=== PATIENT | male | born 1950 | race Caucasian/White ===

== ENCOUNTER 2019-07-21 10:14 | Outpatient (CLI) | payer MEDICARE, BC, SELFPAY ==
--- NOTE | ~2019-07-21 | XR_ITS ---
XR abdomen/kub 1V 07/21/2019 10:36 Indication: Renal stones Procedure: KUB Comparison: Comparison to multiple prior studies sequentially, with oldest reviewed study dated 04/2015. Findings: There are multiple right renal stones. There are left renal stones as well. Bowel gas patte rn is nonobstructive. There are pelvic phleboliths. No suspected ureteral stone. No acute osseous abn ormality. Impression: 1: Bilateral nephrolithiasis. No definite urolithiasis. Reviewed, dictated and finalized at location A. Impression: 1: Bilateral nephrolithiasis. No definite urolithiasis.
== END 2019-07-21 10:15 | disposition home or self-care (01) ==
PROVIDERS: Visit Provider Urology
DX: N20.0 Calculus of kidney (principal)
CPT/HCPCS: 74018

== ENCOUNTER 2019-08-19 07:05 | Emergency (ER) | payer MEDICARE, BC, SELFPAY ==
--- NOTE | ~2019-08-19 | CT_ITS ---
EXAMINATION: CT abdomen pelvis wo con DATE: 08/19/2019 07:23 INDICATION: Nephrolithiasis. Right flank pain. Nausea and vomiting. TECHNIQUE: Computed tomography (CT) of the abdomen and pelvis was performed without intravenous contr ast. Automated exposure control and iterative reconstruction technique were employed. The dose-length product was 465.44 mGy-cm. COMPARISON: 02/27/2015 FINDINGS: Bladimir at the bilateral lung bases. Heart size is normal. Atherosclerotic coronary artery calcificati on. No pericardial or pleural effusion. Diffuse hepatic steatosis. Gallbladder, spleen, pancreas and bilateral adrenal glands are normal. Small duodenal diverticulum. Bilateral nephrolithiasis with 4 st ones the left kidney the largest measuring 3 mm and a single 2 mm stone in the right kidney. 3 cm exo phytic cyst at the lower pole of the right kidney. Mild right hydronephrosis with obstructing [address] one in the mid right ureter. The left ureter and decompressed bladder are unremarkable. There is norm al appendix. No bowel obstruction. No free intraperitoneal gas or fluid. No pathologically enlarged a bdominal or pelvic lymphadenopathy. Mild colonic diverticulosis with a sigmoid predominance. There i s no adjacent inflammatory change to suggest diverticulitis. Moderate lumbar spondylosis. Stable appe arance of chronic osteonecrosis/avascular necrosis at the right femoral head. IMPRESSION: 1. Bilateral nephrolithiasis with obstructing 3 mm stone in the mid right ureter resulting in mild ri ght hydroureteronephrosis. 2. Diffuse hepatic steatosis. 3. 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 Reviewed, dictated and finalized at location A. IMPRESSION: 1. Bilateral nephrolithiasis with obstructing 3 mm stone in the mid right urete r resulting in mild right hydroureteronephrosis. 2. Diffuse hepatic steatosis. 3. 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
[2019-08-19 07:10] VITALS: BP 148/81; PULSE 57; RESP 16; TEMP 36.4; O2SAT 98
--- NOTE | 2019-08-19 07:29 | ED.MALEGU ---
HPI - Male Genitourinary General Chief complaint: Urogenital-Male Stated complaint: kidney stone Time Seen by Provider: 08/19/19 07:12 History of Present Illness HPI Narrative: Patient is a 69-year-old male who presents the ER with right-sided flank pain. Sudden onset this morning. Associated with nausea and vomiting as well as diaphoresis. Pain radiates from the right back into the right mid abdomen. Patient has history of kidney stones and this feels similar. Follows with Dr. Gonzalez. No fevers or chills. Denies any urinary frequency/urgency/hematuria/dysuria. No alleviating factors. Related Data Home Medications Medication Instructions Recorded Confirmed allopurinol 100 08/19/19 atorvastatin 10 08/19/19 bisoprolol fumarate 5 mg 08/19/19 cephalexin 250 08/19/19 losartan 100 08/19/19 potassium citrate PO 08/19/19 Allergies Allergy/AdvReac Type Severity Reaction Status Date / Time No Known Allergies Allergy Verified 08/19/19 07:22 Review of Systems Review of Systems: All systems reviewed & are unremarkable except as noted in HPI and below Constitutional: Constitutional: Denies chills, Denies fever(s) and Denies weakness Comments: Sweats ENT: Denies nasal congestion and Denies sore throat Gastrointestinal: Gastrointestinal: Denies abdominal pain, Reports nausea and Reports vomiting Genitourinary: Genitourinary: Denies hematuria, Denies dysuria and Denies urinary frequency Comments: Flank pain PMFSH Past Medical History Medical History (Updated 08/19/19 @ 10:00 by Benjamin Worrell MD) Hypertension Kidney stones Surgical History Surgical History (Updated 08/19/19 @ 07:31 by Benjamin Worrell MD) H/O lithotripsy Social History Social History (Updated 08/19/19 @ 07:31 by Benjamin Worrell MD) Smoking status: Never smoker Gender identity (if verbalized by the patient): Female Exam Narrative: Exam Narrative: GENERAL: Well-appearing, well-nourished, and in no acute distress. HEAD: Normocephalic, atraumatic. CHEST: Clear to auscultation. No respiratory distress. HEART: Regular rate and rhythm. Normal peripheral pulses. ABDOMEN: Soft, nontender, nondistended, no CVA tenderness. EXTREMITIES: Normal range of motion. No edema. SKIN: Warm, dry, no rash. NEURO: Alert and oriented x3. PSYCH: Normal mood and affect. Course Course Emergency Course: Feels much better after IV pain meds as well as antiemetics. Discharge home supportive therapy. Vital Signs Vital signs: Vital Signs Temperature 97.5 F L 08/19/19 07:10 Pulse Rate 57 L 08/19/19 07:10 Respiratory Rate 16 08/19/19 07:10 Blood Pressure 148/81 H 08/19/19 07:10 Pulse Oximetry 98 08/19/19 07:10 Temperature 97.5 F L 08/19/19 07:10 Pulse Rate 57 L 08/19/19 07:10 Respiratory Rate 16 08/19/19 07:10 Blood Pressure 148/81 H 08/19/19 07:10 Pulse Oximetry 98 08/19/19 07:10 MDM - Male Genitourinary Lab Data Labs: Lab Results 08/19/19 Range/Units 08:49 Urine Color Yellow (Yellow) Urine Appearance Clear (Clear) Urine pH 5.0 (5.0-9.0) Ur Specific [place] 1.023 (1.001-1.035) Urine Protein Negative (Negative) mg/dL Urine Glucose (UA) Negative (Negative) mg/dL Urine Ketones Negative (Negative) mg/dL Ur Blood (Man) 3+ H (Negative) Urine Nitrate Negative (Negative) Urine Bilirubin Negative (Negative) Urine Urobilinogen Negative (<2.0) mg/dL Leukocyte Esterase Rfl Negative (Negative) TOR/UL Urine RBC >75 H (0-2) /hpf Urine WBC 0-3 /hpf Urine Mucus Rare /lpf Imaging Data Radiologist's impression: ITS Impressions Abdomen/Pelvis CT 08/19/19 07:35 IMPRESSION: 1. Bilateral nephrolithiasis with obstructing 3 mm stone in the mid right ureter resulting in mild right hydroureteronephrosis. 2. Diffuse hepatic steatosis. 3. 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 Discharge Plan Discharge Clinica
[2019-08-19] MEDS: SODIUM CHLORIDE 0.9% IV 1,000 ML 999 ML IV CONT (07:34)
[2019-08-19] MEDS: MORPHINE SULFATE 4 MG/ML INJ IV PUSH (07:35)
[2019-08-19] MEDS: ONDANSETRON INJ 4 MG/2 ML VIAL IV PUSH (07:35)
[2019-08-19] MEDS: KETOROLAC 30 MG/ML VIAL (*BKC) IV PUSH (08:38)
[2019-08-19 08:59] LABS: Add Urine Microscopic? YES; Appearance Urine Clear (Clear); Bilirubin Urine Negative (Negative); Blood Urine 3+ (Negative); Color Urine Yellow (Yellow); Glucose Urine UA Negative (Negative); Ketones Urine Negative (Negative); Leukocyte Esterase Ur Negative LEU/UL (Negative); Mucus Urine Rare /lpf; Nitrate Urine Negative (Negative); Protein Urine Negative (Negative); RBC Urine >75 /hpf (0-2); Specific Grav Ur 1.023 (1.001-1.035); Urobilinogen Urine Negative mg/dL (<2.0); WBC Urine 0-3 /hpf
[2019-08-19] MEDS: PROMETHAZINE HCL 25 MG/ML AMPUL 12.5 MG IV PUSH (08:59)
[2019-08-19 10:22] VITALS: BP 107/73; PULSE 85; RESP 15; O2SAT 100
== END 2019-08-19 10:24 | disposition home or self-care (01) ==
PROVIDERS: Emergency Provider Emergency Medicine
DX: N13.2 Hydronephrosis with renal and ureteral calculous obstruction (principal); I10 Essential (primary) hypertension; K76.0 Fatty (change of) liver, not elsewhere classified; M87.9 Osteonecrosis, unspecified
CPT/HCPCS: 74176; 81001; 96361; 96374; 96375; 99284; J1885; J2270; J2405; J2550; J7030

== ENCOUNTER 2020-04-07 16:52 | Emergency (ER) | payer MEDICARE, BC, SELFPAY ==
--- NOTE | ~2020-04-07 | XR_ITS ---
EXAMINATION: XR wrist RT min 3V DATE: 04/07/2020 17:18 INDICATION: Radial sided right wrist pain. TECHNIQUE: 4 views of right wrist were obtained. COMPARISON: None. FINDINGS: There is a nondisplaced sagittal fracture of distal radius involving the distal articular s urface. Ulnar styloid is intact. There is mild osteoarthritis of triscaphe joint and severe osteoarth ritis of first carpometacarpal joint. There is a loose body in first carpometacarpal joint. IMPRESSION: 1. Nondisplaced fracture of distal radius. 2. Polyarticular osteoarthritis. Reviewed, dictated and finalized at location A. [employer]
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
[2020-04-07 17:08] VITALS: BP 149/76; PULSE 59; RESP 16; TEMP 36.9; O2SAT 99
== END 2020-04-07 17:50 | disposition home or self-care (01) ==
PROVIDERS: Emergency Provider Nurse Practitioner; PCP Family Medicine
DX: S52.501A Unspecified fracture of the lower end of right radius, initial encounter for closed fracture (principal); V18.4XXA Pedal cycle driver injured in noncollision transport accident in traffic accident, initial encounter; I10 Essential (primary) hypertension; E78.00 Pure hypercholesterolemia, unspecified; M10.9 Gout, unspecified
CPT/HCPCS: 29125; 73110; 99214; A4565; G0463

== ENCOUNTER 2020-08-23 10:35 | Outpatient (CLI) | payer MEDICARE, BC, SELFPAY ==
--- NOTE | ~2020-08-23 | XR_ITS ---
EXAMINATION: XR abdomen/kub 1V EXAM DATE: 08/23/2020 10:52 INDICATION: Calculus of kidney . TECHNIQUE: Frontal projection of the upper abdomen, frontal projection lower abdomen/pelvis for inter pretation. Comparison is made to prior examination from 07/21/2019. FINDINGS: Approximately 3 mm right calyceal stone suspected. Several left calyceal stones suspected up to about 4 mm. These calcifications have been indicated. Nonobstructive bowel gas pattern. Asymme tric left-sided chronic sacroiliitis. Mild chronic right hip avascular necrosis. Mild lumbar levoscol iosis. IMPRESSION: Bilateral nephrolithiasis. Reviewed, dictated and finalized at location B. IMPRESSION: Bilateral nephrolithiasis.
== END 2020-08-23 10:36 | disposition home or self-care (01) ==
PROVIDERS: PCP Family Medicine; Visit Provider Urology
DX: N20.0 Calculus of kidney (principal)
CPT/HCPCS: 74018

== ENCOUNTER 2021-08-24 09:00 | Outpatient (CLI) | payer MEDICARE, BC, SELFPAY ==
--- NOTE | ~2021-08-24 | XR_ITS ---
EXAM: XR abdomen/kub 1V DATE: 08/24/2021 09:17 HISTORY: CALCULUS OF KIDNEY. FOLLOW UP . COMPARISON: 08/23/2020. FINDINGS: Clear lung bases. Normal bowel gas pattern. No organomegaly. 3 mm right midpole and multip le 2 to 4 mm left mid and lower pole calcifications. Left sacroiliitis. Degenerative changes in the l umbar spine. Right femoral head AVN. IMPRESSION: Stable nephrolithiasis. Reviewed, dictated and finalized at location K. IMPRESSION: Stable nephrolithiasis.
== END 2021-08-24 09:01 | disposition home or self-care (01) ==
PROVIDERS: PCP Family Medicine; Visit Provider Urology
DX: N20.0 Calculus of kidney (principal)
CPT/HCPCS: 74018

== ENCOUNTER 2021-10-23 10:19 | Emergency (ER) | payer MEDICARE, BC, SELFPAY ==
--- NOTE | ~2021-10-23 | XR_ITS ---
EXAMINATION: XR wrist LT min 3V DATE: 10/23/2021 10:50 INDICATION: Left wrist pain. Fall. TECHNIQUE: 4 views of left wrist were obtained. COMPARISON: None. FINDINGS: Bone alignment is normal. No fracture. There is severe osteoarthritis of first carpometacar pal joint. IMPRESSION: 1. Severe osteoarthritis of first carpometacarpal joint. Reviewed, dictated and finalized at location A.
[2021-10-23 10:32] VITALS: BP 136/59; PULSE 57; RESP 18; TEMP 36.6; O2SAT 97
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
== END 2021-10-23 11:24 | disposition home or self-care (01) ==
PROVIDERS: Emergency Provider Nurse Practitioner Adult Health; PCP Family Medicine
DX: S63.502A Unspecified sprain of left wrist, initial encounter (principal); S66.912A Strain of unspecified muscle, fascia and tendon at wrist and hand level, left hand, initial encounter; V18.4XXA Pedal cycle driver injured in noncollision transport accident in traffic accident, initial encounter; I10 Essential (primary) hypertension; E78.5 Hyperlipidemia, unspecified; M19.90 Unspecified osteoarthritis, unspecified site; E78.00 Pure hypercholesterolemia, unspecified
CPT/HCPCS: 73110; 99213; G0463

== ENCOUNTER 2022-07-08 18:00 | Emergency (ER) | payer MEDICARE, BC, SELFPAY ==
[2022-07-08 18:14] VITALS: BP 141/66; PULSE 58; RESP 16; TEMP 37.1; O2SAT 98
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
[2022-07-08] MEDS: TETANUS,DIPHTHERIA,AC PERTUSSIS ADULT (0.5 ML) BOOSTRIX IM (18:31)
== END 2022-07-08 18:55 | disposition home or self-care (01) ==
PROVIDERS: Emergency Provider Nurse Practitioner; PCP Hospitalist
DX: S61.411A Laceration without foreign body of right hand, initial encounter (principal); W25.XXXA Contact with sharp glass, initial encounter; M19.90 Unspecified osteoarthritis, unspecified site; E78.00 Pure hypercholesterolemia, unspecified; I10 Essential (primary) hypertension
CPT/HCPCS: 12001; 90471; 90715; 99212; G0463

== ENCOUNTER 2022-10-10 07:41 | Outpatient (CLI) | payer MEDICARE, BC, SELFPAY ==
--- NOTE | ~2022-10-10 | XR_ITS ---
Supine and upright views of the abdomen Clinical history: Renal stones COMPARISON: 08/24/2021 Findings: Bowel gas pattern is nonspecific. No evidence for obstruction or free air. Multiple small b ilateral renal stones are similar in distribution to prior exam, largest stone probably in the left k idney measuring approximately 4 mm. Osseous structures are intact. Impression: Small bilateral renal stones, as detailed above. Reviewed, dictated and finalized at location . Impression: Small bilateral renal stones, as detailed above.
== END 2022-10-10 07:42 | disposition home or self-care (01) ==
PROVIDERS: PCP Hospitalist; Visit Provider Urology
DX: N20.0 Calculus of kidney (principal)
CPT/HCPCS: 74018

== ENCOUNTER 2023-11-01 11:59 | Outpatient (CLI) | payer MEDICARE, BC, SELFPAY ==
--- NOTE | ~2023-11-01 | XR_ITS ---
XR abdomen/kub 1V DATE: 11/01/2023 12:15 INDICATION: Kidney calculus follow-up TECHNIQUE: 2 AP supine views COMPARISON: 10/10/2022 PA FINDINGS: No apparent change of bilateral renal calcified calculi including at least one on the right , at least 3 on the left. Noncontrast CT abdomen pelvis examination would be more sensitive and accur ate for detection of urinary tract calculi. The psoas shadows are intact. No visceromegaly is evident. No evidence of bowel obstruction. 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 Mild thoracic and lumbar spondylosis. IMPRESSION: Stable appearing bilateral nephrolithiasis since 10/10/2022 Reviewed, dictated and finalized at Location A. Reviewed, dictated and finalized at location A.
== END 2023-11-01 12:00 | disposition home or self-care (01) ==
PROVIDERS: PCP Hospitalist; Visit Provider Urology
DX: N20.0 Calculus of kidney (principal)
CPT/HCPCS: 74018

== ENCOUNTER 2023-11-05 05:48 | Observation (INO) | payer MEDICARE, BC, SELFPAY ==
[2023-11-05] VITALS (11 sets, daily range): BP systolic 102–164; BP diastolic 40–82; PULSE 52–93; RESP 10–19; TEMP 36.1–36.9; O2SAT 88–100; BMI 37.0
--- NOTE | ~2023-11-05 | XR_ITS ---
EXAMINATION: XR retrograde pyelo w/stent LT DATE: 11/05/2023 12:29 INDICATION: Left internal ureteral stent placement TECHNIQUE: Fluoroscopic images from a left internal ureteral stent placement are submitted for review . 56 seconds of fluoroscopy time. 17 fluoroscopic images FINDINGS: There is a left double-J internal ureteral stent projecting in expected position, with proximal [place] loop at the level of the renal pelvis and distal loop in the pelvis within the bladder lumen. IMPRESSION: 1. Left internal ureteral stent placement. Please refer to real-time procedural findings for detail s. Reviewed, dictated and finalized at location B. IMPRESSION: 1. Left internal ureteral stent placement. Please refer to real-time procedur al findings for details.
--- NOTE | ~2023-11-05 | CT_ITS ---
EXAMINATION: CT abdomen pelvis wo con DATE: 11/05/2023 06:45 INDICATION: Left flank pain TECHNIQUE: Computed tomography (CT) of the abdomen and pelvis was performed without intravenous contr ast. Automated exposure control and iterative reconstruction technique were employed. The dose-length product was 1334.93 mGy-cm. COMPARISON: 08/19/2019 FINDINGS: Mild bibasilar atelectasis. Heart size is normal. Atherosclerotic coronary artery calcific lesion. No pericardial or pleural effusion. Small calcified hepatic nodule consistent with old granulomatous di sease. Gallbladder, spleen, pancreas and bilateral adrenal glands are normal. Bilateral nephrolithias is with 4 mm nonobstructing stone at the lower pole of the right kidney and 5 stones measuring up to 5 mm in the calyces of the left kidney. There is also a 4 mm obstructing stone at the proximal left u reter with mild left hydronephrosis. Bladder is decompressed. Prostatomegaly measuring 4.8 x 4.5 cm. There is mild colonic diverticulosis with a sigmoid predominance. There is no adjacent inflammatory c hange to suggest diverticulitis. Small bowel and appendix are normal. No free intraperitoneal gas or fluid. No pathologically enlarged abdominal or pelvic lymphadenopathy. Moderate lumbar and lower thor acic spondylosis. There is osteophyte necrosis at the right femoral head. IMPRESSION: 1. Bilateral nephrolithiasis with obstructing 4 mm stone at the proximal left ureter with mild left h ydronephrosis. 2. Osteonecrosis of the right femoral head. Reviewed, dictated and finalized at location A. IMPRESSION: 1. Bilateral nephrolithiasis with obstructing 4 mm stone at the proximal left u reter with mild left hydronephrosis. 2. Osteonecrosis of the right femoral head.
--- NOTE | 2023-11-05 06:06 | ED.ABDPAIN ---
HPI - Abdominal Pain General Chief Complaint: Abdominal Pain Stated Complaint: left sided kidney stone Time Seen by Provider: 11/05/23 05:49 History of Present Illness HPI narrative: patient with history of kidney stones, presents here with sudden onset pain to left flank that feels like a kidney stone associated with nausea. Related Data Home Medications Medication Instructions Recorded Confirmed allopurinol 100 mg tablet 100 mg PO DAILY 04/07/20 07/08/22 (Zyloprim) amlodipine 5 mg tablet (Norvasc) 5 mg PO DAILY 04/07/20 07/08/22 bisoprolol fumarate 5 mg tablet 10 mg PO DAILY 04/07/20 07/08/22 losartan 100 mg tablet 150 mg PO DAILY 04/07/20 07/08/22 potassium citrate 10 mEq (1,080 10 meq PO BID 04/07/20 07/08/22 mg) tablet,extended release (Urocit-K 10) cholecalciferol (vitamin D3) 50 50 mcg PO DAILY 04/09/20 07/08/22 mcg (2,000 unit) capsule rosuvastatin 20 mg tablet 20 mg PO DAILY 07/08/22 07/08/22 Allergies Allergy/AdvReac Type Severity Reaction Status Date / Time No Known Allergies Allergy Verified 07/08/22 18:13 Review of Systems Review of Systems: All systems reviewed & are unremarkable except as noted in HPI and below PMFSH Past Medical History Medical History Arthritis Distal radial fracture High cholesterol History of adverse effect of anesthesia Hypertension Kidney stones Wears glasses Surgical History Surgical History H/O lithotripsy History of ear surgery approx. 1999 History of extraction of renal calculus History of repair of rotator cuff approx. [id number] History of tonsillectomy Family History Family History Other Arthritis Heart disease High cholesterol Hypertension Social History Social History Smoking status: Never smoker Alcohol intake: current Alcohol use details: 6 times per year Substance use: never Substance use type: does not use Gender identity (if verbalized by the patient): Male Exam Narrative: EXAMINATION OF ORGAN SYSTEMS/BODY AREAS: Constitutional: Vital signs per nursing GENERAL: Appears slightly uncomfortable HEAD: Normal with no signs of head trauma. EYES: EOMI, conjunctiva normal ENT: Hearing grossly intact LUNGS: Nonlabored breathing. HEART: [Regular rate and rhythm] ABD: [Soft], [nontender to palpation] EXT: Normal range of motion SKIN: [No rashes or lesions.] NEURO: [Alert and oriented x 3. No gross focal sensory or strength deficits.] PSYCH: Normal affect Course Vital Signs Vital signs: Vital Signs Temperature 98.4 F 11/05/23 05:59 Pulse Rate 78 11/05/23 05:59 Respiratory Rate 14 11/05/23 05:59 Blood Pressure 164/82 H 11/05/23 05:59 Pulse Oximetry 100 11/05/23 05:59 Oxygen Delivery Room Air 11/05/23 05:59 Temperature 98.4 F 11/05/23 05:59 Pulse Rate 78 11/05/23 05:59 Respiratory Rate 14 11/05/23 05:59 Blood Pressure 164/82 H 11/05/23 05:59 Pulse Oximetry 100 11/05/23 05:59 Oxygen Delivery Room Air 11/05/23 05:59 MDM - Abdominal Pain MDM Narrative Medical decision making narrative: ED COURSE AND MEDICAL DECISION MAKINM presenting to the emergency department for acute flank pain, symptoms are concerning for likely renal colic versus pyelonephritis. Urinalysis is ordered. [IV Morphine and Zofran] are ordered. CT scan of the abdomen/pelvis is ordered. CT scan of the abdomen/pelvis is reviewed/interpreted by myself shows L prox ureteral stone about 5.5 mm. D/w Dr Oliveira who will adm pt and possibly take to OR later today. Lab Data 11/05/23 06:12 11/05/23 06:12 Labs: Lab Results 11/05/23 Range/Units 06:12 WBC 8.7 (4.5-10.0) K/mm3 RBC 4.66 (4.6-6.20) M/mm3 Hgb 14.6 (14.0-
[2023-11-05] MEDS: ONDANSETRON INJ 4 MG/2 ML VIAL IV PUSH (06:14)
[2023-11-05] MEDS: MORPHINE SULFATE (*CRX) 4 MG/ML INJ 2 MG IV PUSH (06:14)
[2023-11-05 06:20] LABS: Basophils Percent Auto 0.3 % (0.2-1.2); Eosinophils Absolute Auto 0.1 K/mm3 (0-0.3); Hematocrit 44.4 % (42.0-52.0); Hemoglobin 14.6 g/dL (14.0-18.0); Immature Granulocyte Absolute 0.02 K/mm3 (0.00-0.031); Immature Granulocyte Percent A 0.2 % (0-0.5); Lymphocytes Absolute Auto 1.04 K/mm3 (0.9-3.2); Lymphocytes Percent Auto 11.9 % (18.3-44.2); Mean Corpuscular HGB Conc 32.9 g/dl (32-36); Mean Corpuscular Hemoglobin 31.3 pg (26-34); Mean Corpuscular Volume 95.3 fl (80-100); Mean Platelet Volume 11.3 fl (7.4-10.4); Monocytes Absolute Auto 0.7 K/mm3 (0.1-0.6); Monocytes Percent Auto 7.8 % (2.6-8.5); Neutrophils Absolute Auto 6.9 K/mm3 (1.3-6.7); Neutrophils Percent Auto 78.8 % (45.5-73.1); Platelet Count Result 246 k/mm3 (150-375); Red Blood Count 4.66 M/mm3 (4.6-6.20); White Blood Count 8.7 K/mm3 (4.5-10.0)
[2023-11-05 06:30] LABS: Add Urine Microscopic? YES; Appearance Urine Clear (Clear); Bacteria Urine None Seen /hpf; Bilirubin Urine Negative (Negative); Blood Urine 3+ (Negative); Color Urine Yellow (Yellow); Glucose Urine UA Negative (Negative); Ketones Urine Negative (Negative); Leukocyte Esterase Ur Negative LEU/UL (Negative); Nitrate Urine Negative (Negative); Non Pathogenic Casts 0-2; Protein Urine Negative (Negative); RBC Urine >100 /hpf (0-2); Specific Grav Ur 1.013 (1.001-1.035); Squamous Epithelial Cell Urine None Seen /hpf (Few); Urobilinogen Urine 0.2 mg/dL (<2.0); WBC Urine 0-5 /hpf (0-3)
[2023-11-05 06:33] LABS: Alanine Aminotransferase 29 U/L (6-50); Albumin Level 4.3 g/dL (3.5-5.1); Alkaline Phosphatase 61 U/L (38-126); Anion Gap 9 mmol/L (4-12); Aspartate Amino Transferase 38 U/L (17-59); Bilirubin,Total 0.9 mg/dL (0.2-1.3); Blood Urea Nitrogen 19 mg/dL (9-20); Calcium 8.8 mg/dL (8.4-10.2); Carbon Dioxide 27 mmol/L (22-30); Chloride 101 mmol/L (98-107); Estimated CRCL calculation 52 ml/min; Estimated Glomerular Filt Rate 59; Glucose 127 mg/dL (65-110); Lipase 89 U/L (23-300); Potassium 4.5 mmol/L (3.4-5.0); Sodium 137 mmol/L (137-145)
[2023-11-05] MEDS: HYDROmorphone HCL INJ (*CRX) 1 MG/ML SYR IV PUSH (07:13)
--- NOTE | 2023-11-05 07:37 | PM.IMHP ---
H&P: HPI History of Present Illness Date/Time: 11/05/23 07:37 Chief Complaint: left flank pain Narrative: 73-year-old male well known to our practice with a history of recurrent urolithiasis. He was just seen a couple days ago with [facility] imaging showing stable stones in his left kidney. He now presents to the ER with acute left renal colic and imaging showing an obstructing proximal ureteral stone. He denies fevers chills or gross hematuria Review of Systems Review of Systems: All systems reviewed & are unremarkable except as noted in HPI and below PMFSH Past Medical History Medical History Arthritis Distal radial fracture High cholesterol History of adverse effect of anesthesia Hypertension Kidney stones Wears glasses Surgical History Surgical History H/O lithotripsy History of ear surgery approx. 1999 History of extraction of renal calculus History of repair of rotator cuff approx. [id number] History of tonsillectomy Family History Family History Other Arthritis Heart disease High cholesterol Hypertension Social History Social History Smoking status: Never smoker Alcohol intake: current Alcohol use details: 6 times per year Substance use: never Substance use type: does not use Gender identity (if verbalized by the patient): Male Meds Home Medications and Allergies Home Medications Medication Instructions Recorded Confirmed Type allopurinol 100 mg tablet 100 mg PO DAILY 04/07/20 07/08/22 History (Zyloprim) amlodipine 5 mg tablet (Norvasc) 5 mg PO DAILY 04/07/20 07/08/22 History bisoprolol fumarate 5 mg tablet 10 mg PO DAILY 04/07/20 07/08/22 History losartan 100 mg tablet 150 mg PO DAILY 04/07/20 07/08/22 History potassium citrate 10 mEq (1,080 10 meq PO BID 04/07/20 07/08/22 History mg) tablet,extended release (Urocit-K 10) cholecalciferol (vitamin D3) 50 50 mcg PO DAILY 03/01/21 05/30/23 History mcg (2,000 unit) capsule rosuvastatin 20 mg tablet 20 mg PO DAILY 07/08/22 07/08/22 History Allergies Allergy/AdvReac Type Severity Reaction Status Date / Time No Known Allergies Allergy Verified 07/08/22 18:13 Vital Signs Vital Signs - 24 hr 11/05/23 05:59 Temperature 98.4 F Pulse Rate 78 Respiratory Rate 14 Blood Pressure 164/82 H Pulse Oximetry 100 Oxygen Delivery Room Air Exam Const: General: no acute distress Resp: Effort & Inspection: normal respiratory effort GI: Inspection: non-distended GI Palp: No abdominal tenderness and No Guarding due to palpation present (GI) Auscultation: normal bowel sounds H&P: Results Labs Labs: Short CBC 11/05/23 Range/Units 06:12 WBC 8.7 (4.5-10.0) K/mm3 Hgb 14.6 (14.0-18.0) g/dL Hct 44.4 (42.0-52.0) % Plt Count 246 (150-375) k/mm3 BMP 11/05/23 06:12 Sodium 137 Potassium 4.5 Chloride 101 Carbon Dioxide 27 BUN 19 Creatinine 1.20 Glucose 127 H Calcium 8.8 Liver Function 11/05/23 Range/Units 06:12 Total Bilirubin 0.9 (0.2-1.3) mg/dL AST 38 (17-59) U/L ALT 29 (6-50) U/L Alkaline Phosphatase 61 (38-126) U/L Albumin 4.3 (3.5-5.1) g/dL Urine 11/05/23 Range/Units 06:12 Urine Color Yellow (Yellow) Urine Appearance Clear (Clear) Urine pH 5.0 (5.0-9.0) Ur Specific [place] 1.013 (1.001-1.035) Urine Protein Negative (Negative) mg/dL Urine Glucose (UA) Negative (Negative) mg/dL Assessment and Plan Assessment and plan (1) Calculus of proximal left ureter: Code(s): N20.1 - Calculus of ureter Status: Acute (2) Left renal stone: Code(s): N20.0 - Calculus of kidney Status: Acute Assessment and Plan: Cystoscopy, left ureteroscopy with stone
--- NOTE | 2023-11-05 07:39 | WPDHPUPDATE1 ---
History and Physical Update Update Date/Time: 11/05/23 07:39 History and Physical has been reviewed, including an updated exam of the patient. There are NO changes in the patient's condition. Risks, benefits, and alternatives have been discussed and questions answered. Patient agrees to proceed with procedure.
--- NOTE | 2023-11-05 07:56 | ADMGEN ---
This patient, Ildefonso Archuleta, was admitted to Medical Room 344-01. Patient/family oriented to hospital policies and general routines including ID bracelet, bed and alarms, visiting hours, pain management, procedures, bathroom and other care routines, personal items, smoking policy, room service/diet, and visiting hours. Information on how to activate the Rapid Response Team has been discussed. Patient/Family are encouraged to report perceived risks to care and to ask questions if they do not understand what they are told or what they should do.
[2023-11-05] MEDS: FAMOTIDINE 20 MG/2 ML VIAL IV PUSH (09:42)
[2023-11-05] MEDS: diphenhydrAMINE HCl INJ 50 MG/ML VIAL 12.5 MG IV PUSH (09:42)
--- NOTE | 2023-11-05 10:51 | WPDANESEPPF ---
Anes - Initial Pre Proc Eval Procedure: Operation Date: 11/05/23 17:00 Proposed Procedures p Cystoscopy, Left Ureteroscopy, Possible Left Retrograde Pyelogram, Possible Left Stone Extraction, Possible Left Stent Placement, Possible Holmium Laser - Earnest Oliveira MD Date/Time: 11/05/23 10:51 Surgeon: Earnest Oliveira MD Pre Op Diagnosis: Left Kidney Stone Patient Data Age: 73 Gender: M Height: 1.65 m Weight: 101 kg Last Vital Signs Temp 97.4 F L 11/05/23 08:25 Pulse 53 L 11/05/23 08:25 Resp 18 11/05/23 08:25 BP 121/52 L 11/05/23 08:25 Pulse Ox 93 11/05/23 08:25 O2 Del Method Room Air 11/05/23 05:59 Allergies Allergy/AdvReac Type Severity Reaction Status Date / Time No Known Allergies Allergy Verified 11/05/23 10:23 Home Medications Medication Instructions Recorded Confirmed Type amlodipine 5 mg tablet (Norvasc) 5 mg PO DAILY 04/07/20 11/05/23 History bisoprolol fumarate 5 mg tablet 10 mg PO DAILY 04/07/20 11/05/23 History losartan 100 mg tablet 100 mg PO DAILY 04/07/20 11/05/23 History potassium citrate 10 mEq (1,080 20 meq PO BID 04/07/20 11/05/23 History mg) tablet,extended release (Urocit-K 10) cholecalciferol (vitamin D3) 50 50 mcg PO DAILY 04/09/20 11/05/23 History mcg (2,000 unit) capsule rosuvastatin 20 mg tablet 20 mg PO DAILY 07/08/22 11/05/23 History aspirin 81 mg tablet,delayed 81 mg PO DAILY 11/05/23 11/05/23 History release (Adult Low Dose Aspirin) losartan 100 mg tablet 50 mg PO HS 11/05/23 11/05/23 History Laboratory Tests 11/05/23 06:12 WBC 8.7 K/mm3 (4.5-10.0) RBC 4.66 M/mm3 (4.6-6.20) Hgb 14.6 g/dL (14.0-18.0) Hct 44.4 % (42.0-52.0) MCV 95.3 fl (80-100) MCH 31.3 pg (26-34) MCHC 32.9 g/dl (32-36) RDW 13.0 % (11.5-14.5) Plt Count 246 k/mm3 (150-375) MPV 11.3 H fl (7.4-10.4) Immature Gran % (Auto) 0.2 % (0-0.5) Neut % (Auto) 78.8 H % (45.5-73.1) Lymph % (Auto) 11.9 L % (18.3-44.2) [place] % (Auto) 7.8 % (2.6-8.5) Eos % (Auto) 1.0 % (0-4.4) Baso % (Auto) 0.3 % (0.2-1.2) Lymph # (Auto) 1.04 K/mm3 (0.9-3.2) [place] # (Auto) 0.7 H K/mm3 (0.1-0.6) Eos # (Auto) 0.1 K/mm3 (0-0.3) Baso # (Auto) 0.0 K/mm3 (0.0-0.1) Abs Immat Gran (auto) 0.02 K/mm3 (0.00-0.031) Absolute Neuts (auto) 6.9 H K/mm3 (1.3-6.7) Absolute Nucleated RBC 0.000 K/mm3 (0.0-0.012) Nucleated RBC % 0.0 % (0.0-0.2) Sodium 137 mmol/L (137-145) Potassium 4.5 mmol/L (3.4-5.0) Chloride 101 mmol/L (98-107) Carbon Dioxide 27 mmol/L (22-30) Anion Gap 9 mmol/L (4-12) BUN 19 mg/dL (9-20) Creatinine 1.20 mg/dL (0.7-1.3) Estim Creat Clear Calc 52 ml/min Estimated GFR 59 (59 - ) Glucose 127 H mg/dL (65-110) Calcium 8.8 mg/dL (8.4-10.2) Total Bilirubin 0.9 mg/dL (0.2-1.3) AST 38 U/L (17-59) ALT 29 U/L (6-50) Alkaline Phosphatase 61 U/L (38-126) Total Protein 7.0 g/dL (6.3-8.2) Albumin 4.3 g/dL (3.5-5.1) Lipase 89 U/L (23-300) Urine Color Yellow (Yellow) Urine Appearance Clear (Clear) Urine pH 5.0 (5.0-9.0) Ur Specific [place] 1.013 (1.001-1.035) Urine Protein Negative mg/dL (Negative) Urine Glucose (UA) Negative mg/dL (Negative) Urine Ketones Negative mg/dL (Negative) Ur Blood (Man) 3+ H (Negative) Urine Nitrate Negative (Negative) Urine Bilirubin Negative (Negative) Urine Urobilinogen 0.2 mg/dL (<2.0) Leukocyte Esterase Rfl Negative TOR/UL (Negative) Urine RBC >100 H /hpf (0-2) Urine WBC 0-5 /hpf (0-3) Ur Squamous Epith Cells None seen /hpf (Few) Urine Bacteria None seen /hpf Urine Casts 0-2 Patient hx anesthesia problems: none Family hx anesthesia problems: none Results Review: All pre-operative results and documents have been re
[2023-11-05] MEDS: LIDOCAINE HCL 2% GEL UROJET 10 ML PKG MUCOUS MEM (10:57)
[2023-11-05] MEDS: ceFAZolin SODIUM 1 GM VIAL 2 GM IV PUSH (11:11)
--- NOTE | 2023-11-05 11:48 | W.PM.PROC2 ---
Procedure Note - Detailed Date of Procedure 11/05/23 Pre-op Diagnosis Left Ureteral and Kidney Stones Post-op Diagnosis Same Procedure Performed Cystoscopy, left retrograde pyelography, left ureteroscopy with laser lithotripsy, stone extraction and stent placement Surgeon Earnest Oliveira MD Anesthesia General Description of Procedure patient is brought to the operative suite was prepped draped in routine sterile fashion while in dorsal lithotomy position after the uneventful induction of a general anesthetic. Cystoscopy was undertaken with a 19 F rigid cystoscope. His urethral stricture but significant prostatic hyperplasia including a moderate size median lobe. Bladder was trabeculated but without foreign body or neoplasm. A 0.035 in glidewire was advanced in the left renal pelvis. A safety wire was placed. The the distal ureter was dilated with an 8 F 10 F dilator into the 11 F/ 13 F ureteral access sheath was placed. Flexible ureteroscopy was undertaken. The mid ureteral stone is identified and fractured with a 200 micron [place] laser fiber. All fragments removed. I then did retrograde pyelogram and inspected calices. There were 3 additional stones found in his kidney which were also ablated. Larger pieces were removed. Scope was removed and a 4.8 F variable length stent was appropriately position. Patient tolerated the procedure well was taken recovery room good condition. Estimated Blood Loss 0
[2023-11-05] MEDS: LACTATED RINGERS 1,000 ML 30 ML IV CONT (12:04)
--- NOTE | 2023-11-06 12:11 | PM.DS ---
DS: Admitting Diagnosis Discharge Date 11/05/23 Admitting Diagnosis Left ureteral stone DS: Discharge Diagnosis Discharge Diagnosis (1) Calculus of proximal left ureter: Code(s): N20.1 - Calculus of ureter Status: Acute DS: Summary Hospital Course Hospital Course: patient is a known recurrent stone former who presented to the ED with a painful obstructing 5 mm left proximal ureteral stone. Later that day underwent ureteroscopy with laser lithotripsy and extraction of both ureteral and renal calculi. A stent was placed. That evening he was comfortable prompting our decision for discharge. Time Spent with Patient Time attestation: Total time spent providing and/or coordinating discharge services: DS: Data Data Completed and Pending Pending studies at discharge: Pending at discharge 11/05/23 11:32 Surgical [PTH] Routine Discharge Plan Discharge Attending physician on discharge: Earnest Oliveira Consulting providers: Eder Menjivar; Garcia Finley; Ildefonso Churchill Discharging Clinician: Earnest Oliveira Patient Disposition: Home, Self-Care Activity: other - see discharge instructions Diet: other - see discharge instructions Wound Care Instructions: follow printed instructions Discharge Instructions: 1) Activity: no driving or important decisions x24 hours. 2) Diet: resume your normal, pre-admission diet. 3) Follow-up: 7-[address] Gonzalez for stent removal / call for appointment ([phone]). Patient Instructions: Antibiotic Form Stand Alone Forms: General Discharge Information Follow-up/Referrals: Timmy Gonzalez MD [Physician] - Discharge Medications: New hydrocodone-acetaminophen 5-325 mg tablet 1 - 2 tablet PO Q6H PRN (Reason: pain) Qty: 20 0RF cephalexin 500 mg capsule 500 mg PO Q8H Qty: 15 0RF Continued rosuvastatin 20 mg tablet 20 mg PO DAILY amlodipine [Norvasc] 5 mg Tablet 5 mg PO DAILY bisoprolol fumarate 5 mg Tablet 10 mg PO DAILY potassium citrate [Urocit-K 10] 10 mEq (1,080 mg) Tablet Extended Release 20 meq PO BID losartan 100 mg Tablet 100 mg PO DAILY cholecalciferol (vitamin D3) 50 mcg (2,000 unit) capsule 50 mcg PO DAILY aspirin [Adult Low Dose Aspirin] 81 mg Tablet,Delayed Release (Dr/Ec) 81 mg PO DAILY losartan 100 mg tablet 50 mg PO HS Date of admission: 11/05/23 06:53 Primary Care Provider: Silvino,Rm Michelle Jr. Admitting Provider: Earnest Oliveira Attending physician on admission: Earnest Oliveira Condition: Stable
== END 2023-11-05 16:50 | disposition home or self-care (01) ==
LOC: ANHED 07:08 → ANH3MED 07:26
PROVIDERS: Admitting Provider Urology; Emergency Provider Emergency Medicine; PCP Hospitalist; Visit Provider Urology
PROC: (CPT 52352; principal; 2023-11-05 17:00)
DX: N20.2 Calculus of kidney with calculus of ureter (principal); Z87.442 Personal history of urinary calculi; N40.0 Benign prostatic hyperplasia without lower urinary tract symptoms; E78.00 Pure hypercholesterolemia, unspecified; I10 Essential (primary) hypertension; E66.9 Obesity, unspecified; Z68.37 Body mass index [BMI] 37.0-37.9, adult; Z79.899 Other long term (current) drug therapy
CPT/HCPCS: 52356; 36415; 74176; 74420; 80053; 81001; 82365; 83690; 85025; 88300; 96374; 96375; 99285; C1769; C1894; C2617; G0378; J0330; J0690; J1100; J1170; J1200; J2270; J2405; J2704; J3010; J7120; Q9966

== ENCOUNTER 2023-12-07 08:38 | Inpatient (IN) | payer MEDICARE, BC, SELFPAY ==
[2023-12-07] VITALS (8 sets, daily range): BP systolic 85–142; BP diastolic 60–86; PULSE 70–85; RESP 14–30; TEMP 36.9–37.1; O2SAT 96–99; BMI 34.7
--- NOTE | ~2023-12-07 | CT_ITS ---
EXAMINATION: CT abdomen pelvis wo con DATE: 12/07/2023 10:34 INDICATION: Diarrhea. TECHNIQUE: Computed tomography (CT) of the abdomen and pelvis was performed without intravenous contr ast. Automated exposure control and iterative reconstruction technique were employed. The dose-length product was 1007.45 mGy-cm. COMPARISON: CT abdomen and pelvis 11/05/2023 FINDINGS: The visualized portions of the lung bases demonstrate mild atelectasis. No pleural effusion . The heart size is normal. There are coronary artery calcifications. No pericardial effusion. The li boone, gallbladder, spleen, pancreas, and adrenal glands are normal. There is cortical thinning of the kidneys. There is a 5.0 cm cyst in right kidney. There is a 5 mm stone in right kidney. There are william roximately 3 stones in left kidney measuring up to 4 mm. There is urothelial thickening in left renal pelvis. There is asymmetric edema around left kidney. The prostate is moderately enlarged. There is diverticulosis of the colon without evidence of diverticulitis. There are no dilated loops of bowel. The appendix is not visualized. There are no pathologically enlarged lymph nodes. There is no free in traperitoneal fluid. There is moderate thoracic and lumbar spondylosis. There is mild chronic anterio r wedging of L1 vertebral body. There is a compression fracture of L2 with 1/5 loss of height. 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 IMPRESSION: 1. Inflammation of left ureter status post recent left ureteral stone extraction. 2. Bilateral nonobstructing kidney stones. 3. Acute versus subacute L2 compression fracture, new from 11/05/2023. Reviewed, dictated and finalized at location B. IMPRESSION: 1. Inflammation of left ureter status post recent left ureteral stone extractio n. 2. Bilateral nonobstructing kidney stones. 3. Acute versus subacute L2 compression fracture, new from 11/05/2023.
--- NOTE | ~2023-12-07 | XR_ITS ---
EXAMINATION: XR chest 2V DATE: 12/07/2023 09:24 INDICATION: Cough. TECHNIQUE: Frontal and lateral views of the chest were obtained. COMPARISON: Chest 2 views 03/18/14 FINDINGS: There is mild atelectasis at the lung bases. No pleural effusion or pneumothorax. The heart size is normal. IMPRESSION: 1. Mild atelectasis at the lung bases. Reviewed, dictated and finalized at location B.
--- NOTE | 2023-12-07 09:01 | ED_ITS ---
HPI - Nausea/Vomiting/Diarrhea General Chief complaint: Nausea/Vomiting/Diarrhea Stated complaint: fever, diarrhea Time Seen by Provider: 12/07/23 08:44 Source: patient, RN notes reviewed and old records reviewed Mode of arrival: ambulatory Limitations: no limitations History of Present Illness HPI Narrative: This is a 73 year old male who presents for evaluation of intermittent fever. Patient states that since last thursday he has been having intermittent fever. T max 103. Last nigh he reports having 102 F so he took tylenol. He has not taken tylenol this morning. He reports worsening congestion, cough with phlegm and intermittent diarrhea. He denies abdominal pain or chest pain. Denies sick contacts. He had lithotripsy 1 month ago MD elicited complaint: diarrhea Related Data Home Medications Medication Instructions Recorded Confirmed amlodipine 5 mg tablet (Norvasc) 5 mg PO DAILY 04/07/20 12/07/23 bisoprolol fumarate 5 mg tablet 10 mg PO DAILY 04/07/20 12/07/23 losartan 100 mg tablet 100 mg PO DAILY 04/07/20 12/07/23 potassium citrate 10 mEq (1,080 20 meq PO BID 04/07/20 12/07/23 mg) tablet,extended release (Urocit-K 10) cholecalciferol (vitamin D3) 50 50 mcg PO DAILY 04/09/20 12/07/23 mcg (2,000 unit) capsule rosuvastatin 20 mg tablet 20 mg PO DAILY 07/08/22 12/07/23 aspirin 81 mg tablet,delayed 81 mg PO DAILY 11/05/23 12/07/23 release (Adult Low Dose Aspirin) losartan 100 mg tablet 50 mg PO HS 11/05/23 12/07/23 [id number]-10 1 tablet PO DAILY 12/07/23 12/07/23 Allergies Allergy/AdvReac Type Severity Reaction Status Date / Time No Known Allergies Allergy Verified 12/07/23 08:40 Review of Systems Constitutional: Constitutional: Reports chills, Reports fatigue and Reports fever(s) ENT: Reports nasal congestion and Denies sore throat Cardiovascular: Cardiovascular: Denies chest pain Gastrointestinal: Gastrointestinal: Denies abdominal pain, Denies bloating and Reports diarrhea Genitourinary: Genitourinary: Reports oliguria and Denies urinary frequency Musculoskeletal: Musculoskeletal: Reports back pain (chronic) [facility] Past Medical History Medical History (Updated 12/07/23 @ 18:17 by Caroline Watson MD) Arthritis Distal radial fracture High cholesterol History of adverse effect of anesthesia Hypertension Kidney stones Wears glasses Surgical History Surgical History H/O lithotripsy History of ear surgery approx. 1999 History of extraction of renal calculus History of repair of rotator cuff approx. [id number] History of tonsillectomy Family History Family History Other Arthritis Heart disease High cholesterol Hypertension Social History Social History Smoking status: Never smoker Alcohol intake: current Drinks per week: 1 Alcohol use details: 6 times per year Substance use: never Substance use type: does not use Do You Feel Safe in your Home?: Yes Lack of Transportation: No Lack of Food: Never True Current Housing: I Have Housing Concerned About Future Housing: No Difficulty Paying Gas/Electric Bills: No Difficulty Paying for Meds: No Currently Unemployed: No Education: Don't Know Difficulty w/ Childcare or Family Care: No Gender identity (if verbalized by the patient): Male Spiritual care concerns: No Exam Const: General: no acute distress and alert Nutritional Appearance: well nourished Orientation/consciousness: patient oriented x3 HENMT: Head: normal to inspection Eyes: EOM: EOMs intact bilaterally Resp: Effort & Inspection: normal respiratory effort Auscultation: clear to auscultation bilaterally Cardio: Rate: regular rate Rhythm: regular rhythm Heart sounds: no murmurs GI: GI Palp: Yes Soft to palpation, No Tenderness to palpation present (GI), No Guarding due to palpation present (GI) and No Rigid due to palpation Auscultation: normal bowel sounds : General: Yes no CVA tenderness Back/Spine/Pelvis: Back: no CVA tenderness Skin: General skin exam: normal color Rashes: no rashes Neuro: General: patient oriented x3, moves all extremities and CN's II-XI intact bilaterally Psych: Mental Status: mental status grossly normal Affect: normal affect Course Consultations Consultation #1: I spoke with Dr. Blood with urology . He states no intervention needed. PAtient will be admitted to hospitalist Date: 12/07/23 Time: 12:16 Consultation #2: I spoke with Dr. Kaiser. She accepts patient to hospitalist service for IV antibiotics to treat for pyelonephritis Date: 12/07/23 Time: 12:46 Vital Signs Vital signs: Vital Signs Temperature 98.8 F 12/07/23 08:45 Pulse Rate 74 12/07/23 08:45 Respiratory Rate 30 H 12/07/23 08:45 Blood Pressure 123/86 12/07/23 08:45 Pulse Oximetry 98 12/07/23 08:45 Oxygen Delivery Room Air 12/07/23 08:45 Temperature 98.8 F 12/07/23 08:45 Pulse Rate 71 12/07/23 11:39 Respiratory Rate 21 H 12/07/23 11:39 Blood Pressure 112/60 12/07/23 11:39 Pulse Oximetry 99 12/07/23 11:39 Oxygen Delivery Room Air 12/07/23 08:45 MDM - Nausea/Vomiting/Diarrhea MDM Narrative Medical decision making narrative: Patient presents with intermittent fever for 8 days. labs, chest ray and CT abdomen and pelvis ordered. labs shows leukocytosis of 25 K. elevated creatinine from baseline. Cr. 1.7 today which is increased from 1.2. UA is positive. CT shows inflammation to left ureter but no obstructing stone. I call urology since patient has receive lithotripsy . PAtient to be admitted for IV antibiotics. Rocephin started. PAtient also given zofrn 4 mg IV and 1 liter NS bolus. Patient denies worsening back pain from his norm. no neurologic deficits. Differential Diagnosis Differential diagnosis: Likely food poisoning, gastroenteritis, dehydration and other (sepsis, bacteremia, UTI, pneumonia, endocarditis, viral syndrome) Medical Records Attestation: I reviewed the patient's medical records. Lab Data Attestation: I reviewed the patient's lab results. 12/07/23 09:16 12/07/23 09:16 Labs: Lab Results 12/07/23 12/07/23 Range/Units 09:16 09:40 WBC 25.7 H (4.5-10.0) K/mm3 RBC 4.51 L (4.6-6.20) M/mm3 Hgb 14.2 (14.0-18.0) g/dL Hct 42.0 (42.0-52.0) % MCV 93.1 (80-100) fl MCH 31.5 (26-34) pg MCHC 33.8 (32-36) g/dl RDW 13.2 (11.5-14.5) % Plt Count 304 (150-375) k/mm3 MPV 10.2 (7.4-10.4) fl Immature Gran % (Auto) Not Reportable Neut % (Auto) Not Reportable Lymph % (Auto) Not Reportable [place] % (Auto) Not Reportable Eos % (Auto) Not Reportable Baso % (Auto) Not Reportable Lymph # (Auto) Not Reportable [place] # (Auto) Not Reportable Eos # (Auto) Not Reportable Baso # (Auto) Not Reportable Abs Immat Gran (auto) Not Reportable Absolute Neuts (auto) Not Reportable Absolute Nucleated RBC Not Reportable Total Counted 100 Neutrophils % (Manual) 86 H (46-73) % Lymphocytes % (Manual) 7 L (18-44) % Monocytes % (Manual) 6 (3-9) % Promyelocytes % (Man) 1 % Nucleated RBC % Not Reportable Abs Lymphs (Manual) 1.79 (1.1-4.5) K/mm3 Abs Monocytes (Manual) 1.54 H (0.1-0.90) K/mm3 Platelet Estimate Adequate (Adequate) Large Platelets Present Giant Platelets Present Anisocytosis 1+ Schistocytes None seen Sodium 137 (137-145) mmol/L Potassium 3.7 (3.4-5.0) mmol/L Chloride 101 (98-107) mmol/L Carbon Dioxide 25 (22-30) mmol/L Anion Gap 11 (4-12) mmol/L BUN 28 H (9-20) mg/dL Creatinine 1.70 H (0.7-1.3) mg/dL Estim Creat Clear Calc 36 ml/min Estimated GFR 39 L (59 - ) Glucose 178 H (65-110) mg/dL Lactic Acid 2.0 (0.7-2.0) mmol/L Calcium 8.6 (8.4-10.2) mg/dL Total Bilirubin 1.1 (0.2-1.3) mg/dL AST 45 (17-59) U/L ALT 100 H (6-50) U/L Alkaline Phosphatase 103 (38-126) U/L Total Protein 7.0 (6.3-8.2) g/dL Albumin 3.6 (3.5-5.1) g/dL Urine Color Dark yellow (Yellow) Urine Appearance Turbid H (Clear) Urine pH 5.0 (5.0-9.0) Ur Specific [place] 1.022 (1.001-1.035) Urine Protein 2+ H (Negative) mg/dL Urine Glucose (UA) Negative (Negative) mg/dL Urine Ketones Trace H (Negative) mg/dL Ur Blood (Man) 2+ H (Negative) Urine Nitrate Positive H (Negative) Urine Bilirubin 1+ H (Negative) Urine Urobilinogen 1.0 (<2.0) mg/dL Add Ur Microanalysis Reviewed Leukocyte Esterase Rfl 2+ H (Negative) TOR/UL Urine RBC 21-50 H (0-2) /hpf Urine WBC >100 H (0-3) /hpf Ur Squamous Epith Cells Occasional (Few) /hpf Urine Bacteria None seen /hpf Urine Casts >20 Hyaline Casts Present (None) /lpf Influenza A (RT-PCR) Negative (Negative) Influenza B (RT-PCR) Negative (Negative) RSV (RT-PCR) Negative (Negative) SARS-CoV-2 RNA (RT-PCR) Negative (Negative) Imaging Data Radiologist's impression: ITS Impressions Chest X-Ray 12/07/23 09:49 IMPRESSION: 1. Mild atelectasis at the lung bases. Abdomen/Pelvis CT 12/07/23 10:44 IMPRESSION: 1. Inflammation of left ureter status post recent left ureteral stone extraction. 2. Bilateral nonobstructing kidney stones. 3. Acute versus subacute L2 compression fracture, new from 11/05/2023. Critical Care Time Critical Care Time Critical Care Time: Yes Total Critical Care Time: 35 Discharge Plan Discharge Clinical Impression: Pyelonephritis, Sepsis Patient Disposition: Still a Patient Condition: Stable
[2023-12-07 09:28] LABS: Hemoglobin 14.2 g/dL (14.0-18.0); Mean Corpuscular HGB Conc 33.8 g/dl (32-36); Mean Corpuscular Hemoglobin 31.5 pg (26-34); Mean Corpuscular Volume 93.1 fl (80-100); Mean Platelet Volume 10.2 fl (7.4-10.4); Platelet Count Result 304 k/mm3 (150-375); Red Blood Count 4.51 M/mm3 (4.6-6.20); Red Cell Distribution Width 13.2 % (11.5-14.5); White Blood Count 25.7 K/mm3 (4.5-10.0)
[2023-12-07 09:38] LABS: Alanine Aminotransferase 100 U/L (6-50); Albumin Level 3.6 g/dL (3.5-5.1); Alkaline Phosphatase 103 U/L (38-126); Anion Gap 11 mmol/L (4-12); Aspartate Amino Transferase 45 U/L (17-59); Bilirubin,Total 1.1 mg/dL (0.2-1.3); Blood Urea Nitrogen 28 mg/dL (9-20); Calcium 8.6 mg/dL (8.4-10.2); Carbon Dioxide 25 mmol/L (22-30); Chloride 101 mmol/L (98-107); Estimated CRCL calculation 36 ml/min; Estimated Glomerular Filt Rate 39; Glucose 178 mg/dL (65-110); Potassium 3.7 mmol/L (3.4-5.0); Sodium 137 mmol/L (137-145)
[2023-12-07] MEDS: SODIUM CHLORIDE 0.9% IV 1,000 ML 999 ML IV CONT (09:51)
[2023-12-07 10:00] LABS: Add Urine Microscopic? YES; Appearance Urine Turbid (Clear); Bacteria Urine None Seen /hpf; Bilirubin Urine 1+ (Negative); Blood Urine 2+ (Negative); Color Urine Dark Yellow (Yellow); Glucose Urine UA Negative (Negative); Hyaline Casts Urine Present /lpf; Ketones Urine Trace mg/dL (Negative); Leukocyte Esterase Ur 2+ LEU/UL (Negative); Need Manual Microscopic Reviewed; Nitrate Urine Positive (Negative); Non Pathogenic Casts >20; Protein Urine 2+ mg/dL (Negative); RBC Urine 21-50 /hpf (0-2); Specific Grav Ur 1.022 (1.001-1.035); Squamous Epithelial Cell Urine Occasional /hpf (Few); WBC Urine >100 /hpf (0-3)
[2023-12-07 10:10] LABS: Lymphocytes Absolute Manual 1.79 K/mm3 (1.1-4.5); Lymphocytes Percent Manual 7 % (18-44); Monocytes Absolute Manual 1.54 K/mm3 (0.1-0.90); Monocytes Percent Manual 6 % (3-9); Neutrophils Percent Manual 86 % (46-73); Promyelocytes Percent 1 %
[2023-12-07 10:11] LABS: Total Cells Counted 100
[2023-12-07 10:12] LABS: Anisocytosis 1+; Large Platelets Present; Schistocytes None Seen
[2023-12-07 10:13] LABS: Giant Platelets Present; Platelet Estimate Adequate (Adequate)
[2023-12-07 10:17] LABS: Influenza A QL RT-PCR Negative (Negative); Influenza B QL RT-PCR Negative (Negative); RSV RNA, RT-PCR Negative (Negative); SARS-CoV-2 RNA PCR Negative (Negative)
--- NOTE | 2023-12-07 10:31 | PC.NURSE ---
Pt in CT at this time
--- NOTE | 2023-12-07 12:47 | WPDURCON ---
Assessment and Plan Assessment and plan (1) Pyelonephritis: Code(s): N12 - Tubulo-interstitial nephritis, not specified as acute or chronic Status: Acute Assessment and Plan: being admitted to Medicine for IV antibiotics. Urine and blood cultures pending. Change to p.o. antibiotics for 14 days based on sensitivities. No acute intervention from a urologic standpoint needed at this time (2) Bilateral kidney stones: Code(s): N20.0 - Calculus of kidney Status: Acute Assessment and Plan: bilateral nonobstructing stones ranged in size from 3-5 mm. no obstructing nephrolithiasis Urology Consult Note HPI Date Seen: 12/07/23 Requesting Physician: Emergency Room [facility] Primary Care Provider: Rm DuboisJr. MD Consult Narrative Narrative: Ildefonso Archuleta is a 73 year old male with a long history of nephrolithiasis. He has had several stone procedures in the past. He has had lithotripsy as well as ureteroscopy. In late October he underwent left ureteroscopy and stone extraction. Stent removed 1 week later. He states that for the last week he has had intermittent fevers. As high as 103. he states he passed a small kidney stone on Thursday but was unable collected. His fevers have been intermittent and continued. This prompted a visit to the emergency room. He has had some urgency and frequency without selma dysuria. he voids with a good stream and has no prominent BPH symptoms. Mild left flank discomfort. CT scan performed shows findings consistent with left pyelonephritis. There is no significant hydronephrosis. He has bilaterally nonobstructing small kidney stones. His white count is elevated. He will be admitted to the hospitalist for IV antibiotics. No acute intervention is needed from a urologic standpoint at this Review of Systems Review of Systems: All systems reviewed & are unremarkable except as noted in HPI and below PMFSH Past Medical History Medical History Arthritis Distal radial fracture High cholesterol History of adverse effect of anesthesia Hypertension Kidney stones Wears glasses Surgical History Surgical History H/O lithotripsy History of ear surgery approx. 1999 History of extraction of renal calculus History of repair of rotator cuff approx. [id number] History of tonsillectomy Family History Family History Other Arthritis Heart disease High cholesterol Hypertension Social History Social History Smoking status: Never smoker Alcohol intake: current Drinks per week: 1 Alcohol use details: 6 times per year Substance use: never Substance use type: does not use Do You Feel Safe in your Home?: Yes Lack of Transportation: No Lack of Food: Never True Current Housing: I Have Housing Concerned About Future Housing: No Difficulty Paying Gas/Electric Bills: No Difficulty Paying for Meds: No Currently Unemployed: No Education: Don't Know Difficulty w/ Childcare or Family Care: No Gender identity (if verbalized by the patient): Male Spiritual care concerns: No Meds Home Medications and Allergies Home Medications Medication Instructions Recorded Confirmed Type amlodipine 5 mg tablet (Norvasc) 5 mg PO DAILY 04/07/20 12/07/23 History bisoprolol fumarate 5 mg tablet 10 mg PO DAILY 04/07/20 12/07/23 History losartan 100 mg tablet 100 mg PO DAILY 04/07/20 12/07/23 History potassium citrate 10 mEq (1,080 20 meq PO BID 04/07/20 12/07/23 History mg) tablet,extended release (Urocit-K 10) cholecalciferol (vitamin D3) 50 50 mcg PO DAILY 04/09/20 12/07/23 History mcg (2,000 unit) capsule rosuvastatin 20 mg tablet 20 mg PO DAILY 07/08/22 12/07/23 History aspirin 81 mg tablet,delayed 81 mg PO DAILY 11/05/23 12/07/23 History release (Adult Low Dose Aspirin) losartan 100 mg tablet 50 mg PO HS 11/05/23 12/07/23 History Allergies Allergy/AdvReac Type Severity Reaction Status Date / Time No Known Allergies Allergy Verified 12/07/23 08:40 Vital Signs Vital Signs - 24 hr 12/07/23 08:45 12/07/23 09:46 12/07/23 09:48 Temperature 98.8 F Pulse Rate 74 70 85 Respiratory Rate 30 H Blood Pressure 123/86 105/67 85/68 L Pulse Oximetry 98 Oxygen Delivery Room Air 12/07/23 09:49 12/07/23 10:56 12/07/23 11:39 Temperature Pulse Rate 80 82 71 Respiratory Rate 18 21 H Blood Pressure 93/63 L 128/85 112/60 Pulse Oximetry 99 99 Oxygen Delivery Exam Const: General: cooperative, healthy appearing, alert, awake and Physically active; No acute distress Nutritional Appearance: average body habitus and well nourished Orientation/consciousness: patient oriented x3 Limitations: no limitations HENMT: Head: normal to inspection Eyes: General: appearance normal, both eyes and all related structures Neck: Neck: normal visual inspection and full ROM Resp: Effort & Inspection: normal respiratory effort, able to speak in complete sentences and no cough GI: Inspection: normal to inspection and non-distended Back/Spine/Pelvis: Back: CVA tenderness ( Mild left) Skin: General skin exam: normal color and no rashes or lesions noted Lesions: no lesions Neuro: General: patient oriented x3 and moves all extremities Extrem: General: normal to inspection and full ROM Psych: Appearance: grossly normal and well kempt Results Labs 12/07/23 09:16 12/07/23 09:16 Labs: Short CBC 12/07/23 Range/Units 09:16 WBC 25.7 H (4.5-10.0) K/mm3 Hgb 14.2 (14.0-18.0) g/dL Hct 42.0 (42.0-52.0) % Plt Count 304 (150-375) k/mm3 [facility] 12/07/23 09:16 Sodium 137 Potassium 3.7 Chloride 101 Carbon Dioxide 25 BUN 28 H Creatinine 1.70 H Glucose 178 H Calcium 8.6 Liver Function 12/07/23 Range/Units 09:16 Total Bilirubin 1.1 (0.2-1.3) mg/dL AST 45 (17-59) U/L ALT 100 H (6-50) U/L Alkaline Phosphatase 103 (38-126) U/L Albumin 3.6 (3.5-5.1) g/dL Urine 12/07/23 Range/Units 09:40 Urine Color Dark yellow (Yellow) Urine Appearance Turbid H (Clear) Urine pH 5.0 (5.0-9.0) Ur Specific [place] 1.022 (1.001-1.035) Urine Protein 2+ H (Negative) mg/dL Urine Glucose (UA) Negative (Negative) mg/dL Imaging My impression: I have viewed his CT scan. There is significant no hydronephrosis. no stones in the ureter. There is bilateral nonobstructing renal stones. There was inflammation around the kidney and ureter consistent with pyelonephritis
[2023-12-07] MEDS: SODIUM CHLORIDE 0.9% IV 1,000 ML 125 ML IV CONT ×2 (13:02→20:29)
--- NOTE | 2023-12-07 15:39 | P.HP_ITS ---
H&P: HPI History of Present Illness Date/Time: 12/07/23 15:39 Chief Complaint: Fever Narrative: Pt admitted for high fevers of 103F on/ off for 8 days. Pt had recent Cystoscopy, left retrograde pyelography, left ureteroscopy with laser lithotripsy, stone extraction and stent placement in oct 2023 under urology pt was DC home after procedure. Pt states he did pass the stone on Thursday and then started getting fevers at home. Here pt has WCC 20,000, creat is 1.7. UA is positive CT scan shows Inflammation of left ureter status post recent left ureteral stone extraction. 2. Bilateral nonobstructing kidney stones. 3. Acute versus subacute L2 compression fracture, new from 11/05/2023. Findings likely indicate infection but no stone. Pt seen by urology also who suggests the same. I did discuss with the pt regarding the L2 compression fracture he does not want to see orthopedics in hospital and prefers to follow as [facility]. And denies any back pain at this time. Pt also has HTN and OA for which he takes medications for. Review of Systems Review of Systems: Fever, sweats, tiredness, no specific urinary complaints All other 12 systems are negative apart those in HPI [facility] Past Medical History Medical History (Updated 12/07/23 @ 16:30 by Christianne Kaiser MD) Arthritis Distal radial fracture High cholesterol History of adverse effect of anesthesia Hypertension Kidney stones Wears glasses Surgical History Surgical History H/O lithotripsy History of ear surgery approx. 1999 History of extraction of renal calculus History of repair of rotator cuff approx. [id number] History of tonsillectomy Family History Family History Other Arthritis Heart disease High cholesterol Hypertension Social History Social History Smoking status: Never smoker Alcohol intake: current Drinks per week: 1 Alcohol use details: 6 times per year Substance use: never Substance use type: does not use Do You Feel Safe in your Home?: Yes Lack of Transportation: No Lack of Food: Never True Current Housing: I Have Housing Concerned About Future Housing: No Difficulty Paying Gas/Electric Bills: No Difficulty Paying for Meds: No Currently Unemployed: No Education: Don't Know Difficulty w/ Childcare or Family Care: No Gender identity (if verbalized by the patient): Male Spiritual care concerns: No Meds Home Medications and Allergies Home Medications Medication Instructions Recorded Confirmed Type amlodipine 5 mg tablet (Norvasc) 5 mg PO DAILY 04/07/20 12/07/23 History bisoprolol fumarate 5 mg tablet 10 mg PO DAILY 04/07/20 12/07/23 History losartan 100 mg tablet 100 mg PO DAILY 04/07/20 12/07/23 History potassium citrate 10 mEq (1,080 20 meq PO BID 04/07/20 12/07/23 History mg) tablet,extended release (Urocit-K 10) cholecalciferol (vitamin D3) 50 50 mcg PO DAILY 04/09/20 12/07/23 History mcg (2,000 unit) capsule rosuvastatin 20 mg tablet 20 mg PO DAILY 07/08/22 12/07/23 History aspirin 81 mg tablet,delayed 81 mg PO DAILY 11/05/23 12/07/23 History release (Adult Low Dose Aspirin) losartan 100 mg tablet 50 mg PO HS 11/05/23 12/07/23 History [id number]-10 1 tablet PO DAILY 12/07/23 12/07/23 History Allergies Allergy/AdvReac Type Severity Reaction Status Date / Time No Known Allergies Allergy Verified 12/07/23 08:40 Vital Signs Vital Signs - 24 hr 12/07/23 08:45 12/07/23 09:46 12/07/23 09:48 Temperature 37.1 C Pulse Rate 74 70 85 Respiratory Rate 30 H Blood Pressure 123/86 105/67 85/68 L Pulse Oximetry 98 Oxygen Delivery Room Air 12/07/23 09:49 12/07/23 10:56 12/07/23 11:39 Temperature Pulse Rate 80 82 71 Respiratory Rate 18 21 H Blood Pressure 93/63 L 128/85 112/60 Pulse Oximetry 99 99 Oxygen Delivery Exam Const: General: cooperative, healthy appearing and overweight; No in distress Nutritional Appearance: overweight Orientation/consciousness: oriented to person HENMT: Head: normal to inspection Resp: Effort & Inspection: no respiratory distress Auscultation: no rhonchi and no wheezes Cardio: Rate: regular rate Rhythm: regular rhythm GI: Inspection: normal to inspection GI Palp: No abdominal tenderness, No Guarding due to palpation present (GI) and No Hepatomegaly present Auscultation: normal bowel sounds Back/Spine/Pelvis: Other: No tenderness over L/S Neuro: General: oriented to person H&P: Results Labs Labs: Short CBC 12/07/23 Range/Units 09:16 WBC 25.7 H (4.5-10.0) K/mm3 Hgb 14.2 (14.0-18.0) g/dL Hct 42.0 (42.0-52.0) % Plt Count 304 (150-375) k/mm3 BMP 12/07/23 09:16 Sodium 137 Potassium 3.7 Chloride 101 Carbon Dioxide 25 BUN 28 H Creatinine 1.70 H Glucose 178 H Calcium 8.6 Liver Function 12/07/23 Range/Units 09:16 Total Bilirubin 1.1 (0.2-1.3) mg/dL AST 45 (17-59) U/L ALT 100 H (6-50) U/L Alkaline Phosphatase 103 (38-126) U/L Albumin 3.6 (3.5-5.1) g/dL Urine 12/07/23 Range/Units 09:40 Urine Color Dark yellow (Yellow) Urine Appearance Turbid H (Clear) Urine pH 5.0 (5.0-9.0) Ur Specific [place] 1.022 (1.001-1.035) Urine Protein 2+ H (Negative) mg/dL Urine Glucose (UA) Negative (Negative) mg/dL Assessment and Plan Assessment and plan (1) Pyelonephritis: Code(s): N12 - Tubulo-interstitial nephritis, not specified as acute or chronic Status: Acute Assessment and Plan: Pt to continue on IV abx. Plan to follow BC and UC Pt seen by urology MD can transition to oral ABX at this time Follow WCC Continue IV fluids (2) Compression fracture of lumbar spine, non-traumatic: Code(s): M48.56XA - Collapsed vertebra, not elsewhere classified, lumbar region, initial encounter for fracture Status: Acute Assessment and Plan: Ct shows- L2 compression fracture, new from 11/05/2023. Pt mentions a fall on concrete floor Pt prefers to follow orthopedics at [facility] (3) Bilateral kidney stones: Code(s): N20.0 - Calculus of kidney Status: Acute Assessment and Plan: Pt having small non obstructing CT reviewed by urology ok to continue IV fluids Plan DVT prop continue lovenox Full code Diet continue cardiac diet in hospital Hospitalist [facility] Advance Care Plan I have confirmed that the patient's Advanced Care Plan is present, code status is documented, or surrogate decision maker is listed in patient medical record.: Yes Medication Reconciliation The patient is not eligible for med reconciliation; the patient is in a emergent medical situation where delaying treatment would jeopardize the patients health.: Yes
[2023-12-07] MEDS: POTASSIUM CITRATE 5 MEQ TAB CR 20 MEQ PO (18:11)
--- NOTE | 2023-12-07 19:47 | ADMGEN ---
This patient, Ildefonso Archuleta, was admitted to Medical Room 246-01. Patient/family oriented to hospital policies and general routines including ID bracelet, bed and alarms, visiting hours, pain management, procedures, bathroom and other care routines, personal items, smoking policy, room service/diet, and visiting hours. Information on how to activate the Rapid Response Team has been discussed. Patient/Family are encouraged to report perceived risks to care and to ask questions if they do not understand what they are told or what they should do.
[2023-12-07] MEDS: LOSARTAN POTASSIUM 50 MG TABLET PO (20:30)
[2023-12-08] VITALS (8 sets, daily range): BP systolic 107–133; BP diastolic 54–77; PULSE 61–84; RESP 14–26; TEMP 36.1–37.5; O2SAT 94–98
[2023-12-08] MEDS: SODIUM CHLORIDE 0.9% IV 1,000 ML 125 ML IV CONT ×3 (05:10→20:16)
[2023-12-08 06:22] LABS: Basophils Absolute Auto 0.1 K/mm3 (0.0-0.1); Basophils Percent Auto 0.5 % (0.2-1.2); Eosinophils Percent Auto 0.1 % (0-4.4); Hematocrit 41.8 % (42.0-52.0); Hemoglobin 13.3 g/dL (14.0-18.0); Immature Granulocyte Absolute 0.26 K/mm3 (0.00-0.031); Immature Granulocyte Percent A 1.3 % (0-0.5); Lymphocytes Absolute Auto 1.36 K/mm3 (0.9-3.2); Lymphocytes Percent Auto 6.7 % (18.3-44.2); Mean Corpuscular HGB Conc 31.8 g/dl (32-36); Mean Corpuscular Hemoglobin 30.8 pg (26-34); Mean Corpuscular Volume 96.8 fl (80-100); Monocytes Absolute Auto 1.1 K/mm3 (0.1-0.6); Monocytes Percent Auto 5.5 % (2.6-8.5); Neutrophils Absolute Auto 17.5 K/mm3 (1.3-6.7); Neutrophils Percent Auto 85.9 % (45.5-73.1); Platelet Count Result 307 k/mm3 (150-375); Red Blood Count 4.32 M/mm3 (4.6-6.20); Red Cell Distribution Width 13.4 % (11.5-14.5); White Blood Count 20.3 K/mm3 (4.5-10.0)
[2023-12-08 06:37] LABS: Alanine Aminotransferase 81 U/L (6-50); Albumin Level 3.4 g/dL (3.5-5.1); Alkaline Phosphatase 104 U/L (38-126); Anion Gap 8 mmol/L (4-12); Aspartate Amino Transferase 40 U/L (17-59); Bilirubin,Total 0.9 mg/dL (0.2-1.3); Blood Urea Nitrogen 23 mg/dL (9-20); Calcium 8.1 mg/dL (8.4-10.2); Carbon Dioxide 28 mmol/L (22-30); Chloride 104 mmol/L (98-107); Estimated CRCL calculation 41 ml/min; Estimated Glomerular Filt Rate 46; Glucose 103 mg/dL (65-110); Potassium 4.2 mmol/L (3.4-5.0); Sodium 140 mmol/L (137-145)
[2023-12-08] MEDS: bisoproloL fumarate 5 MG TABLET 10 MG PO (08:40)
[2023-12-08] MEDS: amLODIPine BESYLATE 5 MG TABLET PO (08:40)
[2023-12-08] MEDS: ASPIRIN 81 MG ENTERIC TABLET PO (08:40)
[2023-12-08] MEDS: CHOLECALCIFEROL 1,000 UNITS TABLET 2000 UNITS PO (08:41)
[2023-12-08] MEDS: VITAMIN B COMPLEX CAPSULE 1 CAP PO (08:42)
[2023-12-08] MEDS: ROSUVASTATIN 20 MG TABLET PO (08:42)
[2023-12-08] MEDS: ENOXAPARIN 40 MG/0.4 ML SYRINGE SUB-Q (08:42)
[2023-12-08] MEDS: POTASSIUM CITRATE 5 MEQ TAB CR 20 MEQ PO (08:43)
--- NOTE | 2023-12-08 14:08 | P.PNIM_ITS ---
Progress Note: A&P Assessment and Plan (1) Pyelonephritis: Code(s): N12 - Tubulo-interstitial nephritis, not specified as acute or chronic Status: Acute Assessment and Plan: Patient with recent history of kidney stones and stent removal with stone extraction * Leukocytosis 25 POA * down to 20 today * CT scan showing inflammation of left ureter bilateral nonobstructing stones * Continue with meropenem IV pending cultures * Blood cultures NGTD * UA suspicious for UTI * IV fluids * pain control (2) Compression fracture of lumbar spine, non-traumatic: Code(s): M48.56XA - Collapsed vertebra, not elsewhere classified, lumbar region, initial encounter for fracture Status: Acute Assessment and Plan: * Ct shows- L2 compression fracture, new from 11/05/2023. * Recent fall at home ambulating on own * will follow with ortho O/P per patient (3) Bilateral kidney stones: Code(s): N20.0 - Calculus of kidney Status: Acute Assessment and Plan: * CT small non obstructing stones bilateral * Urology consulted * recent stent removal and stone extraction * IV fluids (4) Diarrhea: Code(s): R19.7 - Diarrhea, unspecified Status: Acute Assessment and Plan: * recent ABX therapy * c-diff pending * can start Imodium if c-diff negative * Add probiotics Plan Code status: Full code per patient DVT prophylaxis: Lovenox Stress ulcer prophylaxis: NA PT/OT notes: Ambulatory Disposition: Patient admitted to the medical unit for treatment pyelonephritis post recent stent removal and stone extraction. Leukocytosis improving cultures pending will continue with meropenem IV pending cultures. Was seen by Urology no further Urology intervention needed at this time. Time Spent With Patient Time with patient: 15 - 25 minutes Subjective Date/time seen: 12/08/23 14:08 Interval history: Patient is a 73-year-old male who was admitted for further evaluation and treatment of pyelonephritis 12/08/2023: Assumed care Patient is sitting on side of bed does report lower back pain but states this is chronic patient has had good urinary output and denies any urgency, frequency, hematuria or burning. Afebrile overnight denied any chills, chest pain, shortness a breath, dizziness, nausea or vomiting. Says he feels a little bit better but still having some generalized weakness. Cultures still pending Review of Systems Review of Systems: All systems reviewed & are unremarkable except as noted in HPI and below Exam Narrative: * GENERAL: Pleasant Alert and oriented x 3 male. No acute distress. * EYES: EOMI. No scleral icterus. PERRLA. * HEENT: Moist mucous membranes. * LUNGS: Clear to auscultation bilaterally. No accessory muscle use. * CARDIOVASCULAR: Regular rate and rhythm. No murmur. No JVD. S1-S2 * ABDOMEN: Soft, non tenderness and non-distended. No palpable masses. * EXTREMITIES: No edema. Non-tender * SKIN: No rashes or lesions. Skin warm, dry. * NEUROLOGIC: No focal neurological deficits. CN II-XII grossly intact * PSYCHIATRIC: Appropriate mood and affect. Good judgement and insight. No visual or auditory hallucinations. Objective Data Vital Signs Vital Signs: Vital Signs - 24 hr 12/07/23 18:40 12/07/23 22:00 12/07/23 20:00 Temperature 98.4 F Pulse Rate 72 72 Respiratory Rate 14 14 Blood Pressure 142/60 H Pulse Oximetry 96 96 Oxygen Delivery Room Air Room Air 12/08/23 06:00 12/08/23 08:35 12/08/23 08:39 Temperature 97.0 F L Pulse Rate 84 70 Respiratory Rate 14 Blood Pressure 115/54 L 133/57 L Pulse Oximetry 96 94 97 Oxygen Delivery Room Air 12/08/23 08:40 12/08/23 08:00 Temperature Pulse Rate 70 Respiratory Rate Blood Pressure Pulse Oximetry 97 Oxygen Delivery Room Air Intake/Output Intake/Output: Intake & Output 12/05/23 12/06/23 12/07/23 12/08/23 23:59 23:59 23:59 23:59 Intake Total 2101.3 2390 Balance 2101.3 2390 Meds/Results Medications: Active Medications Generic Name Dose Route Start Last Admin Trade Name Freq PRN Reason Stop Dose Admin Acetaminophen 650 mg 12/07/23 12:45 Acetaminophen 325 Mg Tablet PO Q4H PRN Mild Pain (1-3) or Fever Hydrocodone Bitart/Acetaminophen 1 tab 12/07/23 16:37 Hydrocodone/Acetaminophen (*Crx) 5-325 Mg Tablet PO Q6H PRN Pain Rated 4-6 Amlodipine Besylate 5 mg 12/08/23 09:00 12/08/23 08:40 Amlodipine Besylate 5 Mg Tablet PO 5 mg DAILY CJ Administration Aspirin 81 mg 12/08/23 09:00 12/08/23 08:40 Aspirin 81 Mg Enteric Tablet PO 81 mg DAILY CJ Administration Bisoprolol Fumarate 10 mg 12/08/23 09:00 12/08/23 08:40 Bisoprolol Fumarate 5 Mg Tablet PO 10 mg DAILY CJ Administration Enoxaparin Sodium 40 mg 12/08/23 09:00 12/08/23 08:42 Enoxaparin 40 Mg/0.4 Ml Syringe SUB-Q 40 mg DAILY CJ Administration Ceftriaxone Sodium 1 gm in 50 mls @ 100 mls/hr 12/08/23 09:00 12/08/23 09:10 Rocephin 1 Gm/Ns 50 Ml IVPB Infused Q24H CJ Infusion Sodium Chloride 1,000 mls @ 125 mls/hr 12/07/23 12:45 12/08/23 05:10 Normal Saline Iv IV CONT 125 mls/hr .Q8H CJ Administration Losartan Potassium 100 mg 12/08/23 09:00 Losartan Potassium 100 Mg Tablet PO DAILY CJ Losartan Potassium 50 mg 12/07/23 21:00 12/07/23 20:30 Losartan Potassium 50 Mg Tablet PO 50 mg HS CJ Administration Ondansetron HCl 4 mg 12/07/23 12:45 Ondansetron Inj 4 Mg/2 Ml Vial IV PUSH Q4H PRN Nausea Potassium Citrate 20 meq 12/07/23 17:00 12/08/23 08:43 Potassium Citrate 5 Meq Tab Cr PO 20 meq BID CJ Administration Rosuvastatin Calcium 20 mg 12/08/23 09:00 12/08/23 08:42 Rosuvastatin 20 Mg Tablet PO 20 mg DAILY CJ Administration Vitamin B Complex 1 cap 12/08/23 09:00 12/08/23 08:42 Vitamin B Complex Capsule PO 1 cap QAM CJ Administration Vitamin D 2,000 units 12/08/23 09:00 12/08/23 08:41 Cholecalciferol 1,000 Units Tablet PO 2,000 units DAILY CJ Administration Radiology Results: ITS Impressions Chest X-Ray 12/07/23 09:49 IMPRESSION: 1. Mild atelectasis at the lung bases. Abdomen/Pelvis CT 12/07/23 10:44 IMPRESSION: 1. Inflammation of left ureter status post recent left ureteral stone extraction. 2. Bilateral nonobstructing kidney stones. 3. Acute versus subacute L2 compression fracture, new from 11/05/2023. Labs Labs: Laboratory Results - last 24 hr 12/08/23 05:48 WBC 20.3 H RBC 4.32 L Hgb 13.3 L Hct 41.8 L MCV 96.8 MCH 30.8 MCHC 31.8 L RDW 13.4 Plt Count 307 MPV 10.0 Immature Gran % (Auto) 1.3 H Neut % (Auto) 85.9 H Lymph % (Auto) 6.7 L [place]lee % (Auto) 5.5 Eos % (Auto) 0.1 Baso % (Auto) 0.5 Lymph # (Auto) 1.36 [place]lee # (Auto) 1.1 H Eos # (Auto) 0.0 Baso # (Auto) 0.1 Abs Immat Gran (auto) 0.26 H Absolute Neuts (auto) 17.5 H Absolute Nucleated RBC 0.000 Nucleated RBC % 0.0 Sodium 140 Potassium 4.2 Chloride 104 Carbon Dioxide 28 Anion Gap 8 BUN 23 H Creatinine 1.50 H Estim Creat Clear Calc 41 Estimated GFR 46 L Glucose 103 Calcium 8.1 L Total Bilirubin 0.9 AST 40 ALT 81 H Alkaline Phosphatase 104 Total Protein 7.0 Albumin 3.4 L Quality VTE Prophylaxis VTE prophylaxis: pharmacologic ordered -Patient's previous records reviewed on admission -ER notes reviewed in detail on admission -discussed all findings and current treatment plan with patient/Family/POA -Consultations reviewed for recommendations -Patient's disposition for safe discharge discussed with behavioral health case manager Dictation performed by [employer] direct speech recognition software, therefore tire mold tester variants and typographical errors may occur. Hospitalist MIPS Advance Care Plan I have confirmed that the patient's Advanced Care Plan is present, code status is documented, or surrogate decision maker is listed in patient medical record.: Yes Medication Reconciliation I have utilized all available resources to obtain, update and review the patients current medications (includes all prescriptions, OTC, herbals, cannabis, and nutritional supplements).: Yes The patient is not eligible for med reconciliation; the patient is in a emergent medical situation where delaying treatment would jeopardize the patients health.: No
[2023-12-08] MEDS: ACIDOPHILUS/BULGARICUS CHEWABLE TABLET 1 TABLET PO ×2 (16:56→20:17)
[2023-12-08 17:59] LABS: Toxigenic C. Diff NEGATIVE (NEGATIVE)
[2023-12-09 05:05] VITALS: BP 121/66; PULSE 58; RESP 20; TEMP 35.8; O2SAT 100
[2023-12-09] MEDS: SODIUM CHLORIDE 0.9% IV 1,000 ML 125 ML IV CONT (05:16)
[2023-12-09 06:25] LABS: Hematocrit 38.6 % (42.0-52.0); Hemoglobin 12.3 g/dL (14.0-18.0); Mean Corpuscular HGB Conc 31.9 g/dl (32-36); Mean Corpuscular Hemoglobin 31.4 pg (26-34); Mean Corpuscular Volume 98.5 fl (80-100); Mean Platelet Volume 10.1 fl (7.4-10.4); Platelet Count Result 286 k/mm3 (150-375); Red Blood Count 3.92 M/mm3 (4.6-6.20); Red Cell Distribution Width 13.4 % (11.5-14.5); White Blood Count 10.9 K/mm3 (4.5-10.0)
[2023-12-09 06:38] LABS: Alanine Aminotransferase 229 U/L (6-50); Alkaline Phosphatase 124 U/L (38-126); Anion Gap 5 mmol/L (4-12); Aspartate Amino Transferase 203 U/L (17-59); Bilirubin,Total 0.6 mg/dL (0.2-1.3); Blood Urea Nitrogen 16 mg/dL (9-20); Calcium 7.7 mg/dL (8.4-10.2); Carbon Dioxide 28 mmol/L (22-30); Chloride 108 mmol/L (98-107); Estimated CRCL calculation 50 ml/min; Estimated Glomerular Filt Rate 59; Glucose 101 mg/dL (65-110); Potassium 4.1 mmol/L (3.4-5.0); Sodium 141 mmol/L (137-145)
--- NOTE | 2023-12-09 06:58 | P.PNIM_ITS ---
Progress Note: A&P Assessment and Plan (1) Pyelonephritis: Code(s): N12 - Tubulo-interstitial nephritis, not specified as acute or chronic Status: Acute Assessment and Plan: Patient with recent history of kidney stones and stent removal with stone extraction * Leukocytosis 25 POA * down to 10.9 today * CT scan showing inflammation of left ureter bilateral nonobstructing stones * Continue with Rocephin IV pending cultures, increased to 2 gram * Blood cultures with gram negative bacilli in aerobic bottle only * UA suspicious for UTI, urine culture growing gram negative bacilli * IV fluids decreased to 75 ml per hour * pain control * Transaminitis on CMP today. Repeat enzymes in the morning. (2) Compression fracture of lumbar spine, non-traumatic: Code(s): M48.56XA - Collapsed vertebra, not elsewhere classified, lumbar region, initial encounter for fracture Status: Acute Assessment and Plan: * Ct shows- L2 compression fracture, new from 11/05/2023. * Recent fall at home ambulating on own * will follow with ortho O/P per patient (3) Bilateral kidney stones: Code(s): N20.0 - Calculus of kidney Status: Acute Assessment and Plan: * CT small non obstructing stones bilateral * Urology consulted * recent stent removal and stone extraction * IV fluids (4) Diarrhea: Code(s): R19.7 - Diarrhea, unspecified Status: Acute Assessment and Plan: * recent ABX therapy * c-diff negative * started immodium prn * Add probiotics Plan Code status: Full code per patient DVT prophylaxis: Lovenox Stress ulcer prophylaxis: NA PT/OT notes: Ambulatory Disposition: Patient admitted to the medical unit for treatment pyelonephritis post recent stent removal and stone extraction. Leukocytosis improving cultures pending will continue with Rocephin IV pending cultures. Was seen by Urology no further Urology intervention needed at this time. Will discharge home to complete a total of 14 days antibiotics. Anticipate discharge tomorrow after repeat blood cultures and hopefully down turning of transaminitis. Subjective Date/time seen: 12/09/23 06:58 Interval history: No acute events overnight. He is seen sitting in chair with at bedside. Overall he feels like he is feeling better. He he had symptoms of urinary urgency and frequency with fevers as high as 103 at home. His p.o. intake is improving but not yet back to baseline. Review of Systems Review of Systems: All other 12 systems are negative apart those in HPI All systems reviewed & are unremarkable except as noted in HPI and below Exam Narrative: General: appears comfortable, in no acute distress Respiratory: breathing is unlabored with even chest rise/fall, lungs are clear without wheezing, rhonchi, and crackles Cardiovascular: Rate and rhythm regular, normal s1s2, no murmur Abdomen: Soft, round, non-tender, active bowel sounds Extremities: No cyanosis, edema, clubbing. Pulses 2/2 Neuro: A&O x 4 Skin: Warm, dry, intact Objective Data Vital Signs Vital Signs: Vital Signs - 24 hr 12/08/23 08:35 12/08/23 08:39 12/08/23 08:40 Temperature Pulse Rate 70 70 Respiratory Rate Blood Pressure 133/57 L Pulse Oximetry 94 97 Oxygen Delivery Room Air 12/08/23 08:00 12/08/23 14:00 12/08/23 19:43 Temperature 98.5 F Pulse Rate 64 64 Respiratory Rate 26 H 26 H Blood Pressure 117/77 Pulse Oximetry 97 98 98 Oxygen Delivery Room Air Room Air 12/08/23 20:15 12/09/23 05:05 Temperature 99.5 F 96.4 F L Pulse Rate 61 58 L Respiratory Rate 20 20 Blood Pressure 107/70 121/66 Pulse Oximetry 96 100 Oxygen Delivery Intake/Output Intake/Output: Intake & Output 12/06/23 12/07/23 12/08/23 12/09/23 23:59 23:59 23:59 23:59 Intake Total 2101.3 5566.7 1400 Balance 2101.3 5566.7 1400 Meds/Results Medications: Active Medications Generic Name Dose Route Start Last Admin Trade Name Freq PRN Reason Stop Dose Admin Acetaminophen 650 mg 12/07/23 12:45 Acetaminophen 325 Mg Tablet PO Q4H PRN Mild Pain (1-3) or Fever Hydrocodone Bitart/Acetaminophen 1 tab 12/07/23 16:37 Hydrocodone/Acetaminophen (*Crx) 5-325 Mg Tablet PO Q6H PRN Pain Rated 4-6 Amlodipine Besylate 5 mg 12/08/23 09:00 12/08/23 08:40 Amlodipine Besylate 5 Mg Tablet PO 5 mg DAILY CJ Administration Aspirin 81 mg 12/08/23 09:00 12/08/23 08:40 Aspirin 81 Mg Enteric Tablet PO 81 mg DAILY CJ Administration Bisoprolol Fumarate 10 mg 12/08/23 09:00 12/08/23 08:40 Bisoprolol Fumarate 5 Mg Tablet PO 10 mg DAILY CJ Administration Enoxaparin Sodium 40 mg 12/08/23 09:00 12/08/23 08:42 Enoxaparin 40 Mg/0.4 Ml Syringe SUB-Q 40 mg DAILY CJ Administration Ceftriaxone Sodium 1 gm in 50 mls @ 100 mls/hr 12/08/23 09:00 12/08/23 09:10 Rocephin 1 Gm/Ns 50 Ml IVPB Infused Q24H CJ Infusion Sodium Chloride 1,000 mls @ 125 mls/hr 12/07/23 12:45 12/09/23 05:16 Normal Saline Iv IV CONT 125 mls/hr .Q8H CJ Administration Lactobacillus Acidophilus 1 tablet 12/08/23 17:00 12/08/23 20:17 Acidophilus/Bulgaricus Chewable Tablet PO 1 tablet QID CJ Administration Losartan Potassium 100 mg 12/08/23 09:00 Losartan Potassium 100 Mg Tablet PO DAILY CJ Losartan Potassium 50 mg 12/07/23 21:00 12/07/23 20:30 Losartan Potassium 50 Mg Tablet PO 50 mg HS CJ Administration Ondansetron HCl 4 mg 12/07/23 12:45 Ondansetron Inj 4 Mg/2 Ml Vial IV PUSH Q4H PRN Nausea Potassium Citrate 20 meq 12/07/23 17:00 12/08/23 16:56 Potassium Citrate 5 Meq Tab Cr PO Not Given BID [facility] Rosuvastatin Calcium 20 mg 12/08/23 09:00 12/08/23 08:42 Rosuvastatin 20 Mg Tablet PO 20 mg DAILY CJ Administration Vitamin B Complex 1 cap 12/08/23 09:00 12/08/23 08:42 Vitamin B Complex Capsule PO 1 cap QAM [facility] [place] Administration Vitamin D 2,000 units 12/08/23 09:00 12/08/23 08:41 Cholecalciferol 1,000 Units Tablet PO 2,000 units DAILY CJ Administration Radiology Results: ITS Impressions Chest X-Ray 12/07/23 09:49 IMPRESSION: 1. Mild atelectasis at the lung bases. Abdomen/Pelvis CT 12/07/23 10:44 IMPRESSION: 1. Inflammation of left ureter status post recent left ureteral stone extraction. 2. Bilateral nonobstructing kidney stones. 3. Acute versus subacute L2 compression fracture, new from 11/05/2023. Labs Labs: Laboratory Results - last 24 hr 12/08/23 12/09/23 17:00 05:39 WBC 10.9 H RBC 3.92 L Hgb 12.3 L Hct 38.6 L MCV 98.5 MCH 31.4 MCHC 31.9 L RDW 13.4 Plt Count 286 MPV 10.1 Sodium 141 Potassium 4.1 Chloride 108 H Carbon Dioxide 28 Anion Gap 5 BUN 16 Creatinine 1.20 Estim Creat Clear Calc 50 Estimated GFR 59 Glucose 101 Calcium 7.7 L Total Bilirubin 0.6 AST 203 H ALT 229 H Alkaline Phosphatase 124 Total Protein 6.0 L Albumin 3.0 L C. difficile (PCR) Negative Quality VTE Prophylaxis VTE prophylaxis: pharmacologic ordered
[2023-12-09] MEDS: CHOLECALCIFEROL 1,000 UNITS TABLET 2000 UNITS PO (09:08)
[2023-12-09 09:09] VITALS: PULSE 65
[2023-12-09] MEDS: ROSUVASTATIN 20 MG TABLET PO (09:09)
[2023-12-09] MEDS: bisoproloL fumarate 5 MG TABLET 10 MG PO (09:09)
[2023-12-09] MEDS: POTASSIUM CITRATE 5 MEQ TAB CR 20 MEQ PO (09:09)
[2023-12-09] MEDS: ACIDOPHILUS/BULGARICUS CHEWABLE TABLET 1 TABLET PO ×4 (09:10→20:05)
[2023-12-09] MEDS: ASPIRIN 81 MG ENTERIC TABLET PO (09:10)
[2023-12-09] MEDS: VITAMIN B COMPLEX CAPSULE 1 CAP PO (09:11)
[2023-12-09] MEDS: amLODIPine BESYLATE 5 MG TABLET PO (09:11)
[2023-12-09] MEDS: ENOXAPARIN 40 MG/0.4 ML SYRINGE SUB-Q (09:11)
[2023-12-09] MEDS: cefTRIAXone 2 GM/NS 100 ML 2 GM/100 ML BAG IVPB (09:12)
[2023-12-09] MEDS: SODIUM CHLORIDE 0.9% IV 1,000 ML 75 ML IV CONT ×2 (12:29→21:58)
[2023-12-09 14:00] VITALS: BP 124/61; PULSE 72; RESP 20; TEMP 36.7; O2SAT 97
[2023-12-09 22:00] VITALS: BP 152/65; PULSE 58; RESP 18; TEMP 37.1; O2SAT 99
[2023-12-10 06:00] VITALS: BP 132/65; PULSE 60; RESP 18; TEMP 37; O2SAT 97
[2023-12-10 06:04] LABS: Hematocrit 39.8 % (42.0-52.0); Hemoglobin 12.7 g/dL (14.0-18.0); Mean Corpuscular HGB Conc 31.9 g/dl (32-36); Mean Corpuscular Volume 97.1 fl (80-100); Platelet Count Result 333 k/mm3 (150-375); Red Cell Distribution Width 13.2 % (11.5-14.5); White Blood Count 10.8 K/mm3 (4.5-10.0)
[2023-12-10 06:17] LABS: Alanine Aminotransferase 240 U/L (6-50); Albumin Level 3.3 g/dL (3.5-5.1); Alkaline Phosphatase 122 U/L (38-126); Anion Gap 8 mmol/L (4-12); Aspartate Amino Transferase 137 U/L (17-59); Bilirubin,Total 0.4 mg/dL (0.2-1.3); Blood Urea Nitrogen 14 mg/dL (9-20); Calcium 8.1 mg/dL (8.4-10.2); Carbon Dioxide 29 mmol/L (22-30); Chloride 107 mmol/L (98-107); Estimated CRCL calculation 55 ml/min; Estimated Glomerular Filt Rate > 60; Glucose 98 mg/dL (65-110); Potassium 4.6 mmol/L (3.4-5.0); Sodium 144 mmol/L (137-145)
[2023-12-10] MEDS: LOSARTAN POTASSIUM 100 MG TABLET PO (09:04)
[2023-12-10] MEDS: VITAMIN B COMPLEX CAPSULE 1 CAP PO (09:05)
[2023-12-10] MEDS: ASPIRIN 81 MG ENTERIC TABLET PO (09:05)
[2023-12-10] MEDS: amLODIPine BESYLATE 5 MG TABLET PO (09:05)
[2023-12-10] MEDS: ACIDOPHILUS/BULGARICUS CHEWABLE TABLET 1 TABLET PO (09:05)
[2023-12-10 09:06] VITALS: PULSE 62
[2023-12-10] MEDS: bisoproloL fumarate 5 MG TABLET 10 MG PO (09:06)
[2023-12-10] MEDS: ROSUVASTATIN 20 MG TABLET PO (09:06)
[2023-12-10] MEDS: POTASSIUM CITRATE 5 MEQ TAB CR 20 MEQ PO (09:08)
[2023-12-10] MEDS: CHOLECALCIFEROL 1,000 UNITS TABLET 2000 UNITS PO (09:09)
[2023-12-10] MEDS: ENOXAPARIN 40 MG/0.4 ML SYRINGE SUB-Q (09:10)
[2023-12-10] MEDS: cefTRIAXone 2 GM/NS 100 ML 2 GM/100 ML BAG IVPB (09:10)
--- NOTE | 2023-12-10 11:01 | P.DS_ITS ---
DS: Admitting Diagnosis Discharge Date 12/09 Admitting Diagnosis fever, urinary frequency DS: Discharge Diagnosis Discharge Diagnosis (1) Pyelonephritis: Code(s): N12 - Tubulo-interstitial nephritis, not specified as acute or chronic Status: Acute Assessment and Plan: Patient with recent history of kidney stones and stent removal with stone extraction * Leukocytosis 25 POA * down to 10.9 today * CT scan showing inflammation of left ureter bilateral nonobstructing stones * Continue with Rocephin IV pending cultures, increased to 2 gram * Blood cultures with gram negative bacilli in aerobic bottle only * UA suspicious for UTI, urine culture growing gram negative bacilli * IV fluids decreased to 75 ml per hour * pain control * Transaminitis on CMP today. Repeat enzymes in the morning. (2) Compression fracture of lumbar spine, non-traumatic: Code(s): M48.56XA - Collapsed vertebra, not elsewhere classified, lumbar region, initial encounter for fracture Status: Acute Assessment and Plan: * Ct shows- L2 compression fracture, new from 11/05/2023. * Recent fall at home ambulating on own * will follow with ortho O/P per patient (3) Bilateral kidney stones: Code(s): N20.0 - Calculus of kidney Status: Acute Assessment and Plan: * CT small non obstructing stones bilateral * Urology consulted * recent stent removal and stone extraction * IV fluids (4) Diarrhea: Code(s): R19.7 - Diarrhea, unspecified Status: Acute Assessment and Plan: * recent ABX therapy * c-diff negative * started immodium prn * Add probiotics Plan Code status: Full code per patient DVT prophylaxis: Lovenox Stress ulcer prophylaxis: NA PT/OT notes: Ambulatory Disposition: Patient admitted to the medical unit for treatment pyelonephritis post recent stent removal and stone extraction. Leukocytosis improving cultures pending will continue with Rocephin IV pending cultures. Was seen by Urology no further Urology intervention needed at this time. Will discharge home to complete a total of 14 days antibiotics. Anticipate discharge tomorrow after repeat blood cultures and hopefully down turning of transaminitis. DS: Summary Hospital Course Reason for hospitalization: pyelonephritis, UTI Hospital Course: Now with a past medical history significant for arthritis, high cholesterol, hypertension, and recurrent kidney stones who presented to the emergency room on 12/06 with complaints of fevers as high as 103 at home for the last few days. The patient reports that he had a recent cystoscopy with left retro pyelogram left ureteroscopy with laser lithotripsy and stone extraction in October 2023. The patient states he passed the stone on Thursday (12/05) and started having fev ers. White count on admission was significantly elevated at 25.7. His creatinine was elevated 1.70 and BUN 28. Urinalysis showed dark yellow turbid urine with 2+ protein, trace ketone, 2+ blood, positive nitrate, 1+ bilirubin, 2+ leukocyte esterase, and greater than 100 wbc's per high-power field. CT abdomen pelvis showed inflammation of the left ureter with bilateral nonobstructing kidney stones. Urine culture was obtained as well as blood cultures and he was started on IV antibiotics with Rocephin. He was also placed on IV fluids. Urine culture grew E coli and 1 of 4 bottles was also positive for E coli. Rocephin was increased to 2 g and blood cultures were repeated 24 hours later. Today on date of discharge his white count has nearly resolved at 10.5 and he overall feels well. He has not had any recurrence of fever. He is tolerating p.o. intake. He will discharge home today in stable condition with Levaquin for a total of 14 days of antibiotics per Urology recommendation. He has been instructed to follow-up with his PCP in the next 1 week given this hospitalization. He was also asked to call Urology and schedule follow-up with Dr. Gonzalez office. He did have mild elevation of liver enzymes which is thought to be reactive from his infection. Repeat liver enzymes on day of discharge showed minimal improvement, no worsening. It was felt that he was safe to discharge with repeat labs in 1 week prior to his PCP follow-up. Time Spent with Patient Time attestation: Total time spent providing and/or coordinating discharge services: 70 Exam Narrative: General: appears comfortable, in no acute distress Respiratory: breathing is unlabored with even chest rise/fall, lungs are clear without wheezing, rhonchi, and crackles Cardiovascular: Rate and rhythm regular, normal s1s2, no murmur Abdomen: Soft, round, non-tender, active bowel sounds Extremities: No cyanosis, edema, clubbing. Pulses 2/2 Neuro: A&O x 4 Skin: Warm, dry, intact DS: Data Data Completed and Pending Labs on day of discharge: Labs from last 24 hours 12/10/23 05:26 WBC 10.8 H RBC 4.10 L Hgb 12.7 L Hct 39.8 L MCV 97.1 MCH 31.0 MCHC 31.9 L RDW 13.2 Plt Count 333 MPV 10.0 Sodium 144 Potassium 4.6 Chloride 107 Carbon Dioxide 29 Anion Gap 8 BUN 14 Creatinine 1.10 Estim Creat Clear Calc 55 Estimated GFR > 60 Glucose 98 Calcium 8.1 L Total Bilirubin 0.4 AST 137 H ALT 240 H Alkaline Phosphatase 122 Total Protein 7.0 Albumin 3.3 L Preliminary micro results at discharge 12/07/23 10:49 Blood Culture - Preliminary Blood Escherichia Coli 12/07/23 10:49 Blood Culture - Preliminary Blood Discharge Plan Discharge Attending physician on discharge: Jade Jay Discharging Clinician: Shannen Juares Patient Disposition: Home, Self-Care Activity: june shower Diet: heart healthy Discharge Instructions: You were admitted after presenting with complaints of weakness and found to have a urinary tract infection. your urine culture grew E coli sensitive to Levaquin. You will continue on oral antibiotics through 12/19. 02/12 blood culture bottles were positive for the same bacteria present in your urine (e- coli). This is likely a contamination. Regardless we increased your antibioti c dosing and re-adele cultures prior to your discharge. I will follow these cultures and contact you if needed. Your liver enzymes were slightly elevated but have started to trend back down. I would like you to follow-up with your primary care provider in the next 1 week given this hospitalization. Will have lab work repeated in 1 week prior to your appointment. If you notice that you were having recurrent fevers, increased weakness, abdominal pain, nausea, vomiting, flank pain, painful urination, or increased frequency please come back to the emergency room for re-evaluation. continue to drink plenty of non caffeinated fluids, empty your bladder frequently, and use [id number] agents such as MiraLax or senna to help prevent constipation. CT abdomen and pelvis: IMPRESSION: 1. Inflammation of left ureter status post recent left ureteral stone extraction. 2. Bilateral nonobstructing kidney stones. 3. Acute versus subacute L2 compression fracture, new from 11/05/2023. Patient Instructions: Antibiotic Form, Levofloxacin (By mouth), Urinary Tract Infection in Men (DC) Stand Alone Forms: General Discharge Information Follow-up/Referrals: Silvino,Rm Michelle Jr., MD [Primary Care Provider] - Timmy Gonzalez MD [Physician] - Discharge Medications: New levofloxacin 750 mg tablet 750 mg PO DAILY Qty: 10 0RF Continued rosuvastatin 20 mg tablet 20 mg PO DAILY amlodipine [Norvasc] 5 mg Tablet 5 mg PO DAILY bisoprolol fumarate 5 mg Tablet 10 mg PO DAILY potassium citrate [Urocit-K 10] 10 mEq (1,080 mg) Tablet Extended Release 20 meq PO BID losartan 100 mg Tablet 100 mg PO DAILY cholecalciferol (vitamin D3) 50 mcg (2,000 unit) capsule 50 mcg PO DAILY [id number]-[id number] 1 tablet PO DAILY aspirin [Adult Low Dose Aspirin] 81 mg Tablet,Delayed Release (Dr/Ec) 81 mg PO DAILY losartan 100 mg tablet 50 mg PO HS Other Ambulatory Orders: Comprehensive Metabolic Panel (Routine) Timeframe: 1 Week Location: Determined by Patient Ordered By: Shannen Juares Date of admission: 12/07/23 14:05 Primary Care Provider: Silvino,Rm Michelle Jr. Admitting Provider: Christianne Kaiser Attending physician on admission: Shannen Juares Condition: Improved Quality VTE Prophylaxis VTE prophylaxis: pharmacologic ordered Hospitalist MIPS Heart Failure (Exclusion) Patient has history of Heart Transplant or Left Ventricular Assistive Device?: No IF YES, STOP HERE Heart Failure (Qualifier) Patient has current or prior documentation of LVEF less than or equal to 40%, or mod/servere depressed LVSF?: No IF NO, STOP HERE
== END 2023-12-10 11:25 | disposition home or self-care (01) | DRG 690 ==
LOC: ANHED 12:57 → ANH2MED 14:10
PROVIDERS: Nurse Practitioner Family; Admitting Provider Family Medicine; Emergency Provider General Practice; PCP Hospitalist; Visit Provider Nurse Practitioner Acute Care
DX: N12 Tubulo-interstitial nephritis, not specified as acute or chronic (principal); S32.020A Wedge compression fracture of second lumbar vertebra, initial encounter for closed fracture; W19.XXXA Unspecified fall, initial encounter; B96.20 Unspecified Escherichia coli [E. coli] as the cause of diseases classified elsewhere; I10 Essential (primary) hypertension; M19.90 Unspecified osteoarthritis, unspecified site; R19.7 Diarrhea, unspecified; Z87.442 Personal history of urinary calculi; Z79.82 Long term (current) use of aspirin; Z20.822 Contact with and (suspected) exposure to COVID-19
CPT/HCPCS: 36415; 71046; 74176; 80053; 81001; 83605; 85025; 85027; 87040; 87086; 87186; 87493; 87637; 96361; 96365; 99285; A9270; J0696; J1650; J7030

== ENCOUNTER 2024-10-16 12:09 | Emergency (ER) | payer MEDICARE, BC, SELFPAY ==
--- NOTE | ~2024-10-16 | XR_ITS ---
EXAMINATION: XR ankle RT min 3V, 10/16/2024 12:25 CDT HISTORY: medial pain with swelling/no injury COMPARISON: No comparisons available. Findings: There are remote corticated fractures of the malleoli, no acute fracture identified. Moderate degenerative changes Soft tissue swelling. Impression: No acute fracture or malalignment. Reviewed, dictated and finalized at location A. Impression: No acute fracture or malalignment.
--- OUTSIDE RECORDS SUMMARY | 2024-10-16 12:11 | XMS_ITS | Encounter Summary ---
Author Organization [facility] Facility Care Team Providers Care Radio Time Buyer Name Role Phone Cleve Weller MD Primary Care Provider [phone] Prasanna Hidalgo MD Unavailable Timmy Gonzalez MD Unavailable [phone] Silvino Hayden MD, Rm Michelle Primary Care Provide r Mohini Morgan MD Unavailable [phone] Encounter Details Date Type Department Care Team (Latest Contact Info) Description 07/06/2014 Orders Only [facility] CLINCONV ProviderMain MD [address] [place], [place] [id number] Social History Tobacco Use Types Packs/Day Years Used Date Smoking Tobacco: Never Assessed Sex and Gender Information Value Date Recorded Sex Assigned at Not on file 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 Historical Provider CV CARDIAC SERVICES PROCE DURES Final Result * CARDIOLOGY REPORT (10/22/2015 12:00 AM CDT) Anatomical Region Laterality Modality Other Narrative 10/22/2015 12:00 AM CDT Ordered by an unspecified provider. Historical Provider MD CV CARDIAC SERVICES PROCE DURES Final Result * CARDIOLOGY REPORT (10/18/2015 12:00 AM CDT) Anatomical Region Laterality Modality Other Narrative 10/18/2015 12:00 AM CDT Ordered by an unspecified provider. Historical Provider CV CARDIAC SERVICES PROCE DURES Final Result documented in this encounter Visit Diagnoses Not on filedocumented in this encounter Care Teams Radio Time Buyer Relationship Specialty Start Date End Date Cleve Weller MD PCP - General Family Practice 05/20/18 03/10/22 Rm Dubois Jr., MD [address] [place] [address] [id number] PCP - General Internal Medicine 03/11/22 Prasanna Hidalgo MD Consulting Physician Interventional Cardiology 12/29/18 Timmy Gonzalez MD [address] [address] Consulting Physician Urology 12/29/18 Mohini Morgan MD [address] [place] [address] Dermatology 03/10/23 documented as of this encounter
--- OUTSIDE RECORDS SUMMARY | 2024-10-16 12:11 | XMS_ITS | Encounter Summary ---
Author Organization [facility] Facility Care Team Providers Care Yard Engineer Name Role Phone Cleve Weller MD Primary Care Provider + [phone] Prasanna Hidalgo MD Unavailable Timmy Gonzalez MD Unavailable [phone] Silvino Hayden MD, Rm Michelle Primary Care Provide r Mohini Morgan MD Unavailable [phone] Encounter Details Date Type Department Care Team (Latest Contact Info) Description 05/03/2015 Orders Only [facility] CLINCONV ProviderMain MD [address] [place], [place] [id number] Social History Tobacco Use Types Packs/Day Years Used Date Smoking Tobacco: Never Assessed Sex and Gender Information Value Date Recorded Sex Assigned at Not on file 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 Historical Provider Final Res ult documented in this encounter Visit Diagnoses Not on filedocumented in this encounter Care Teams Yard Engineer Relationship Specialty Start Date End Date Cleve Weller MD PCP - General Family Practice 05/20/18 03/10/22 Rm Dubois Jr., MD [address] [place] [address] [id number] PCP - General Internal Medicine 03/11/22 Prasanna Hidalgo MD Consulting Physician Interventional Cardiology 12/29/18 Timmy Gonzalez MD [address] [phone] Consulting Physician Urology 12/29/18 Mohini Morgan MD [address] [place] [phone] Dermatology 03/10/23 documented as of this encounter
--- OUTSIDE RECORDS SUMMARY | 2024-10-16 12:11 | XMS_ITS | Clinical Summary ---
Author Organization [facility] Address [address] [place] [address] Care Team Providers Care High Lift Driver Name Role Phone Cleve Weller MD Primary Care Provider [phone] Allergies No known active allergies Medications losartan 100 MG tablet Take 100 mg by mouth daily. Active potassium citrate CR 10 MEQ (1080 MG) tablet Take 10 mEq by mouth once. TAKE TWO ONCE DAILY Active Cholecalciferol (VITAMIN D3) 2000 units Tab ONCE EVERY OTHER DAY Active allopurinol 100 MG tablet Take 100 mg by mouth daily. Active bisoprolol 5 MG tablet Take 5 mg by mouth daily. Active atorvastatin 10 MG tablet Take 10 mg by mouth nightly at bedtime. Active Active Problems No known active problems Family History Medical History Relation Comments Heart Disease Father HEART ATTACK Arthritis Mother Hypertension Mother Relation Status Comments Father Mother Social History Tobacco Use Types Packs/Day Years Used Date Smoking Tobacco: Never Smokeless Tobacco: Never Alcohol Use Standard Drinks/Week Comments Yes 0 (1 standard drink = 0.6 oz pur e alcohol) OCCASIONALLY Sex and Gender Information Value Date Recorded Sex Assigned at Not on file Legal Sex Male 6:03 PM CDT Gender Identity Not on file Sexual Orientation Not on file Last Filed Vital Signs Vital Sign Reading Time Taken Comments Blood Pressure 108/72 05/04/2018 10:38 AM CDT Pulse 65 05/04/2018 10:38 AM CDT Temperature 36.6 C (97.8 F) 05/04/2018 10:18 AM CDT Respiratory Rate 13 05/04/2018 10:38 AM CDT Oxygen Saturation 94% 05/04/2018 10:38 AM CDT Inhaled Oxygen Concentration - - Weight 95.3 kg (210 lb) 05/04/2018 8:13 AM CDT Height 167.6 cm (5' 6) 05/04/2018 8:13 AM CDT Body Mass Index 33.89 05/04/2018 8:13 AM CDT Plan of Treatment Health Maintenance Due Date Last Done Comments Hepatitis C 1966 DTaP, Tdap and Td Vaccines ( 1 - Tdap) 05/01/1967 Pneumococcal Vaccine: 50+ Ye ars (1 of 1 - PCV) 1998 Zoster Vaccines (1 of 2) 1998 Annual Medicare Wellness Visit 2013 RSV Immunization or 60+ Years (1 - 1-dose 75+ series) 05/01/2023 COVID-19 Vaccine ( - 2023-2 5 season) 2024 Colorectal Cancer Screening Colonoscopy (10 Years) Discontinued 05/04/2018 Meningococcal B Vaccine Aged Out No l onger eligible based on patient's age to complete this topic Meningococcal Vaccine Aged Out No william zonia eligible based on patient's age to complete this topic RSV Immunizations Under 20 Months Aged Out No longer eligible based on patient's age to complete this topic Procedures Procedure Name Priority Date/Time Associated Diagnosis Comments COLONOSCOPY Routine 05/04/2018 8:09 AM CDT from Last 3 Months or Most Recently Relevant to Health Maintenance Insurance [place] [employer] [facility] Care Teams High Lift Driver Relationship Specialty Start Date End Date Cleve Weller MD [address] [place], [place] [phone] PCP - General INTERNAL MEDICINE 04/29/18
--- OUTSIDE RECORDS SUMMARY | 2024-10-16 12:11 | XMS_ITS | Encounter Summary ---
Author Organization [facility] Facility Care Team Providers Care Health And Social Care Teacher Name Role Phone Cleve Weller MD Primary Care Provider [phone] Prasanna Hidalgo MD Unavailable [phone] Timmy Gonzalez MD Unavailable [phone] Silvino Hayden MD, Rm Michelle Primary Care Provide r Mohini Morgan MD Unavailable [phone] Encounter Details Date Type Department Care Team (Latest Contact Info) Description 03/21/2016 Orders Only [facility] CLINCONV ProviderMain MD [address] [place] [address] Social History Tobacco Use Types Packs/Day Years Used Date Smoking Tobacco: Never Assessed Sex and Gender Information Value Date Recorded Sex Assigned at Not on file 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 Historical Provider Final Res ult documented in this encounter Visit Diagnoses Not on filedocumented in this encounter Care Teams Health And Social Care Teacher Relationship Specialty Start Date End Date Cleve Weller MD PCP - General Family Practice 05/20/18 03/10/22 Rm Dubois Jr., MD [address] [place] [phone] PCP - General Internal Medicine 03/11/22 Prasanna Hidalgo MD Consulting Physician Interventional Cardiology 12/29/18 Timmy Gonzalez MD [address] [facility] [address] [place] [phone] Consulting Physician Urology 12/29/18 Mohini Morgan MD [address] [place] [address] [phone] Dermatology 03/10/23 documented as of this encounter
--- OUTSIDE RECORDS SUMMARY | 2024-10-16 12:11 | XMS_ITS | Encounter Summary ---
Author Organization [facility] Facility Care Team Providers Care Forms Builder Name Role Phone Cleve Weller MD Primary Care Provider [phone] Prasanna Hidalgo MD Unavailable Timmy Gonzalez MD Unavailable [phone] Silvino Hayden MD, Rm Michelle Primary Care Provide r Mohini Morgan MD Unavailable [phone] Encounter Details Date Type Department Care Team (Latest Contact Info) Description 03/21/2014 Orders Only [facility] CLINCONV ProviderMain MD [address] [place], [place] [phone] Social History Tobacco Use Types Packs/Day Years Used Date Smoking Tobacco: Never Assessed Sex and Gender Information Value Date Recorded Sex Assigned at Not on file 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 Historical Provider [facility] CARDIAC SERVICES JOSELINE SHRESTHA Final Result documented in this encounter Visit Diagnoses Not on filedocumented in this encounter Care Teams Forms Builder Relationship Specialty Start Date End Date Cleve Weller MD PCP - General Family Practice 05/20/18 03/10/22 Rm Dubois Jr., MD [address] [place] [address] [phone] PCP - General Internal Medicine 03/11/22 Prasanna Hidalgo MD Consulting Physician Interventional Cardiology 12/29/18 Timmy Gonzalez MD [address] [phone] Consulting Physician Urology 12/29/18 Mohini Morgan MD [address] [place] [address] [phone] Dermatology 03/10/23 documented as of this encounter
--- OUTSIDE RECORDS SUMMARY | 2024-10-16 12:11 | XMS_ITS | Encounter Summary ---
Author Organization [facility] Facility Care Team Providers Care Dumper Bailer Operator Name Role Phone Cleve Weller MD Primary Care Provider [phone] Prasanna Hidalgo MD Unavailable Timmy Gonzalez MD Unavailable [phone] Silvino Hayden MD, Rm Michelle Primary Care Provide r oMhini Morgan MD Unavailable [phone] Encounter Details Date Type Department Care Team (Latest Contact Info) Description 07/17/2014 Orders Only [facility] CLINCONV ProviderMain MD [address] [place], [place] [phone] Social History Tobacco Use Types Packs/Day Years Used Date Smoking Tobacco: Never Assessed Sex and Gender Information Value Date Recorded Sex Assigned at Not on file 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 Historical Provider [facility] CARDIAC SERVICES JOSELINE SHRESTHA Final Result documented in this encounter Visit Diagnoses Not on filedocumented in this encounter Care Teams Dumper Bailer Operator Relationship Specialty Start Date End Date Cleve Weller MD PCP - General Family Practice 05/20/18 03/10/22 Rm Dubois Jr., MD [address] [place] [phone] PCP - General Internal Medicine 03/11/22 Prasanna Hidalgo MD Consulting Physician Interventional Cardiology 12/29/18 Timmy Gonzalez MD [address] [phone] Consulting Physician Urology 12/29/18 Mohini Morgan MD [address] [place] [address] [phone] Dermatology 03/10/23 documented as of this encounter
--- OUTSIDE RECORDS SUMMARY | 2024-10-16 12:11 | XMS_ITS | Encounter Summary ---
Author Organization [facility] Facility Care Team Providers Care Supervisor Engine Repair Name Role Phone Cleve Weller MD Primary Care Provider [phone] Prasanna Hidalgo MD Unavailable Timmy Gonzalez MD Unavailable [phone] Silvino Hayden MD, Rm Michelle Primary Care Provide r Mohini Morgan MD Unavailable [phone] Encounter Details Date Type Department Care Team (Latest Contact Info) Description 05/04/2018 Orders Only [facility] CLINCONV ProviderMain MD [address] [place], [place] [phone] Social History Tobacco Use Types Packs/Day Years Used Date Smoking Tobacco: Never Assessed Sex and Gender Information Value Date Recorded Sex Assigned at Not on file 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 Historical Provider Final Res ult documented in this encounter Visit Diagnoses Not on filedocumented in this encounter Care Teams Supervisor Engine Repair Relationship Specialty Start Date End Date Cleve Weller MD PCP - General Family Practice 05/20/18 03/10/22 Rm Dubois Jr., MD [address] [place] [place] [address] [phone] PCP - General Internal Medicine 03/11/22 Prasanna Hidalgo MD Consulting Physician Interventional Cardiology 12/29/18 Timmy Gonzalez MD [address] [phone] Consulting Physician Urology 12/29/18 Mohini Morgan MD [address] [place] [place] [address] [phone] Dermatology 03/10/23 documented as of this encounter
--- OUTSIDE RECORDS SUMMARY | 2024-10-16 12:11 | XMS_ITS | Encounter Summary ---
Author Organization [facility] Facility Care Team Providers Care Cook Specialty Name Role Phone Cleve Weller MD Primary Care Provider [phone] Prasanna Hidalgo MD Unavailable Timmy Gonzalez MD Unavailable [phone] Silvino Hayden MD, Rm Michelle Primary Care Provide r Mohini Morgan MD Unavailable [phone] Encounter Details Date Type Department Care Team (Latest Contact Info) Description 05/07/2018 Orders Only [facility] CLINCONV ProviderMain MD [address] [place], [place] [phone] Social History Tobacco Use Types Packs/Day Years Used Date Smoking Tobacco: Never Assessed Sex and Gender Information Value Date Recorded Sex Assigned at Not on file 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 Historical Provider Final Res ult documented in this encounter Visit Diagnoses Not on filedocumented in this encounter Care Teams Cook Specialty Relationship Specialty Start Date End Date Cleve Weller MD PCP - General Family Practice 05/20/18 03/10/22 Rm Dubois Jr., MD [address] [place] [address] [phone] PCP - General Internal Medicine 03/11/22 Prasanna Hidalgo MD Consulting Physician Interventional Cardiology 12/29/18 Timmy Gonzalez MD [address] [phone] Consulting Physician Urology 12/29/18 Mohini Morgan MD [address] [place] [address] [phone] Dermatology 03/10/23 documented as of this encounter
--- OUTSIDE RECORDS SUMMARY | 2024-10-16 12:11 | XMS_ITS | Encounter Summary ---
Author Organization [facility] Address [address] [place] [address] Care Team Providers Care Linemarker Name Role Phone Prasanna Hidalgo MD Unavailable [phone] Timmy Gonzalez MD Unavailable [phone] Silvino Hayden MD, Rm Michelle Primary Care Provide r Mohini Morgan MD Unavailable [phone] Encounter Details Date Type Department Care Team (Late st Contact Info) Description 08/31/2024 Results Follow-Up [facility] Cardiology [address] [place] [phone] Gail Blount, STORE MANAGEMENT TRAINEE [address] [place] [address] CBC with auto differential, Comprehensive metabolic panel, Lipid panel, Additional followed-up results: 2 Social History Tobacco Use Types Packs/Day Years Used Date Smoking Tobacco: Never Smokeless Tobacco: Never Alcohol Use Standard Drinks/Week Comments Yes 0 (1 standard drink = 0.6 oz pur e alcohol) 1 per month AUDIT-C Answer Date Recorded Q1: How often do you have a drink containing alc ohol? Monthly or less 08/22/2024 Q2: How many drinks containi ng alcohol do you have on a typical day when you are drinking? 1 or 2 08/22/2024 Q3: How often do you have si x or more drinks on one occasion? 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 Gender Identity Not on file Sexual Orientation Not on file documented as of this encounter Plan of Treatment Not on file documented as of this encounter Visit Diagnoses Not on filedocumented in this encounter Care Teams Linemarker Relationship Specialty Start [place] [address] [place] [phone] PCP - General Internal Medicine 03/11/22 Prasanna Hidalgo MD Consulting Physician Interventional Cardiology 12/29/18 Timmy Gonzalez MD [address] [phone] Consulting Physician Urology 12/29/18 Mohini Morgan MD [address] [place] [phone] Dermatology 03/10/23 documented as of this encounter
--- OUTSIDE RECORDS SUMMARY | 2024-10-16 12:11 | XMS_ITS | Clinical Summary ---
Author Organization [facility] [address] [facility] thaddeus Address [address] [place] [address] Care Team Providers Care Probation And Parole Officer Name Role Phone Prasanna Hidalgo MD Unavailable [phone] Timmy Gonzalez MD Unavailable [phone] Silvino Hayden MD, Rm Michelle Primary Care Provide r Mohini Morgan MD Unavailable [phone] Allergies No known active allergies Medications potassium citrate ER (UROCIT-K) 10 mEq (1,080 mg) CR tablet Take 2 tablets (20 mEq total) by mouth daily Active vitamin b complex tablet Take 1 tablet by mouth daily Active cholecalcifer ol (VITAMIN D-3) 2000 unit capsule Take 1 capsule (2,000 Units total) by mouth daily after breakfast Active metroNIDAZOLE (METROGEL) 1 % gel Apply topically daily 02/12/19 23 Active hydrocortison e 2.5 % cream APPLY TO RASH TWICE DAILY NEEDED MIX WITH KETOCONAZOLE CREAM 02/12/19 24 Active ketoconazole (NIZORAL) 2 % cream APPLY TWICE DAILY NEEDED TO RASH MIX WITH HYDROCORTISONE CREAM 02/12/19 24 Active blood glucose diagnostic (glucose blood) stripIndicati ons:Controlle d type 2 diabetes mellitus with stage 2 chronic kidney disease, without long-term current use of insulin Use to test blood sugars daily 100 strip 6 03/10/19 24 Active aspirin 81 mg enteric coated tabletIndicat ions:preventi on of thrombosis Take 1 tablet (81 mg total) by mouth daily Active OneTouch Verio Flex meter misc USE DAILY TO MONITOR BLOOD SUGAR 03/11/19 Active OneTouch Delica Plus Lancet 33 gauge misc USE TO TEST BLOOD SUGARS DAILY 03/11/19 Active bisoprolol (ZEBETA) 10 mg tabletIndicat ions:Dyslipid emia,Hyperten deanna, essential,Cor onary artery disease involving false pass coronary artery of false pass heart without angina pectoris,Nimco nary-myocardi al bridge,Aortic root dilatation TAKE 1 TABLET BY MOUTH EVERY DAY 90 tablet 3 07/06/19 25 Active rosuvastatin (CRESTOR) 20 mg tablet TAKE 1 TABLET BY MOUTH EVERY DAY 90 tablet 1 07/30/19 25 Active amLODIPine (NORVASC) 5 mg tabletIndicat ions:Hyperten deanna, essential TAKE 1 TABLET (5 MG TOTAL) BY MOUTH DAILY. 90 tablet 1 09/21/19 25 Active losartan (COZAAR) 100 mg tabletIndicat ions:Hyperten deanna, essential TAKE 1.5 TABLETS (150MG TOTAL) BY MOUTH DAILY 135 tablet 1 10/16/19 25 Active losartan (COZAAR) 100 mg tabletIndicat ions:Hyperten deanna, essential TAKE 1.5 TABLETS (150MG TOTAL) BY MOUTH DAILY 135 tablet 3 10/22/19 24 2024 Discontinued amLODIPine (NORVASC) 5 mg tabletIndicat ions:Hyperten deanna, essential TAKE 1 TABLET (5 MG TOTAL) BY MOUTH DAILY. 90 tablet 1 01/01/20 24 2024 Discontinued Active Problems Problem Noted Date Diagnosed Date Palpitations 07/08/2023 Controlled type 2 diabetes dorian kimbrough with stage 2 chronic kidney disease, without long-term current use of insulin 03/10/2023 Assessment & Plan (08/22/2024 12:24 PM CDT): Diet controlled He is manaing fine. 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 03/10/2023 Assessment & Plan (02/12/2024 9:03 AM TUFTER): Chronic stable Well controlled Continue current prescribed medications rosuvastatin and aspirin at current dose Aortic root dilatation 03/10/2023 Assessment & Plan (02/12/2024 9:03 AM TUFTER): Monitor, follows cardiology Assessment & Plan (06/09/2023 9:38 AM CDT): Monitor, follows cardiology 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 Patient denies NSAID use, but mentions he has used NSAIDs in the past. Biopsies were negative for H pylori. EGD/EUS December 2021 with healed ulcer, 5 mm scar in the gastric antrum, biopsies negative for H pylori. -avoid NSAIDs -continue PPI daily for 1 more month, then stop Assessment & Plan (10/24/2021 9:41 AM CDT): EGD October 2021 with 5 mm clean based antral ulcer. Patient denies NSAID use. Taking PPI b.i.d. -continue PPI b.i.d. -repeat EGD in 2 months to assess ulcer healing History of gastrointestinal stromal tumor (GIST) 10/10/2021 Overview (10/10/2021): Added automatically from request for surgery [id number] Assessment & Plan (06/09/2023 9:00 AM CDT): S/p surgery Montor for now History of colonic polyps 10/01/2021 Assessment & Plan (01/14/2022 8:53 AM TUFTER): Colonoscopy October 2021 with 2 tubular adenomas, other benign polyps. -repeat colonoscopy in October of 2024 Assessment & Plan (10/24/2021 9:31 AM CDT): Colonoscopy October 2021 with 2 tubular adenomas, other benign polyps. -repeat colonoscopy in October of 2024 Assessment & Plan (10/01/2021 8:59 AM CDT): I have independently reviewed and interpreted the patient's last colonoscopy and pathology report. Patient had a colonoscopy in April of 2018 with three 8 mm tubular adenomas in the transverse colon, one 8 mm hyperplastic polyp in the descending colon, mild sigmoid diverticulosis. Recommend repeat colonoscopy in 3 years. -we will plan to schedule colonoscopy after cardiac clearance -The risks (risks of bleeding, infection, perforation requiring surgery, missed polyps/cancer, dental injury, aspiration pneumonia, anesthesia complications such as drug reaction and cardiopulmonary complications including rare chance of ), benefits, and alternatives of the planned procedure were explained to the patient who understands and consents to having procedure done. Family history of ASCVD 09/16/2021 Overview (09/16/2021): Added automatically from request for surgery [id number] Vitamin D deficiency 08/08/2020 Assessment & Plan (08/31/2021 11:02 AM CDT): Needs repeat level. Continue vitamin-D 38422 units weekly. Assessment & Plan (03/05/2021 9:33 AM TUFTER): Needs higher dose of vitamin-D. Recommend weekly prescription [place] [address] units weekly Assessment & Plan (08/23/2020 9:20 AM CDT): Level is low and he has not been taking the vitamin-D everyday and encouraged him take the vitamin-D everyday instead of every other day. Assessment & Plan (08/08/2020 11:42 AM CDT): He has history of low serum vitamin-D and is taking 2000 units daily and we will check his level. Hypertension, essential 02/21/2020 Assessment & Plan (08/22/2024 12:23 PM CDT): Chronic stable Well controlled Continue current prescribed medications losartan, bisoprolol, amlodipine at current dose Assessment & Plan (02/12/2024 9:01 AM TUFTER): Chronic stable Well controlled Continue current prescribed medications losartan, bisoprolol, amlodipine at current dose Assessment & Plan (03/10/2023 9:35 AM TUFTER): Chronic stable Well controlled Continue current prescribed medications at current dose Assessment & Plan (08/31/2021 10:58 AM CDT): Continue losartan /zebeta at same dosage. Well controlled. Assessment & Plan (03/03/2021 10:34 AM TUFTER): Continue losartan/amlodipine at same dosage. Well controlled. Assessment & Plan (08/21/2020 3:12 PM CDT): Continue bisoprolol/losartan/amlodipine at same dosage. Well controlled. Assessment & Plan (08/07/2020 11:00 AM CDT): Continue losartan/amlodipine at same dosage. Well controlled. Assessment & Plan (02/21/2020 1:43 PM TUFTER): Continue medication at same dosage. Well controlled. History of low potassium 02/21/2020 Assessment & Plan (08/21/2020 3:12 PM CDT): Continue potassium at same dosage. Well controlled. Assessment & Plan (08/07/2020 11:00 AM CDT): Continue potassium citrate at same dosage. Well controlled. Assessment & Plan (02/23/2020 8:24 AM TUFTER): Potassium is high normal. He is taking 2 potassium citrate pills a day to decrease the risk of kidney stones with last kidney stones about 3 months ago. We will check his potassium in a few weeks. If his potassium is any higher we will have to cut the dosage of potassium Encounter for Medicare annual wellness exam 02/09 Assessment & Plan (02/12/2024 9:02 AM TUFTER): Reviewed previous labs and diagnostic test results. Chronic medical problems evaluated and management plans discussed with the patient. Prescription medications, supplements, vitamins and immunizations reviewed. Wear seatbelts. Use sunscreen. Discussed healthy diet and disease prevention and controlling portions including alcohol Discussed importance of scheduling recommended screening tests. Discussed importance of regular physical examinations for health maintenance. Discussed importance of a living will, advanced directives and establishing or updating healthcare power of title attorney document and providing our office with a copy. Assessment & Plan (09/05/2022 9:35 AM CDT): Reviewed previous labs and diagnostic test results. Chronic medical problems evaluated and management plans discussed with the patient. Prescription medications, supplements, vitamins and immunizations reviewed. Wear seatbelts. Use sunscreen. Discussed healthy diet and disease prevention and controlling portions including alcohol Discussed importance of scheduling recommended screening tests. Discussed importance of regular physical examinations for health maintenance. Discussed importance of a living will, advanced directives and establishing or updating healthcare power of title attorney document and providing our office with a copy. Assessment & Plan (03/05/2021 9:34 AM TUFTER): BMI Follow-up includes: nutrition counseling and exercise counseling. Recommend flu shot, refuses flu shot Class 1 obesity due to exces s calories with serious comorbidity and body mass index (BMI) of 34.0 to 34.9 in adult 07/07/2018 Assessment & Plan (08/22/2024 12:21 PM CDT): Still has kept weight off from last time Assessment & Plan (02/12/2024 9:01 AM TUFTER): Lost 20 lbs-mainly he thinks it was from being sick but also did stop drinking sweet tea Assessment & Plan (06/09/2023 9:39 AM CDT): Will consider the GLP-1s Assessment & Plan (03/10/2023 9:36 AM TUFTER): With Dm2 and HLD Monitor weight Assessment & Plan (09/05/2022 9:56 AM CDT): Increase exercise recommended Assessment & Plan (07/18/2022 8:16 AM CDT): Monitor weight Assessment & Plan (03/11/2022 1:46 PM TUFTER): Monitor weight Assessment & Plan (12/22/2018 2:56 PM TUFTER): Patient was advised to lose weight. Discussed 1/2 to 1 lb per week as a good goal. Discussed that reducing weight by 500 calories per day should result in weight loss of about a lb per week. Encouraged efforts to maintain adequate protein of more than 60 g per day. Encouraged reducing refined starches and diet especially bread, rice, pasta, and cereal. Avoid juices and sugared drinks. Discussed that 5-10% weight loss can lead to improvement in health outcomes for weight related conditions. Discussed behavioral measures. Recommended regular weight monitoring as well as some moderate with a food diary.BMI Follow-up includes: nutrition counseling and exercise counseling. Assessment & Plan (07/07/2018 12:14 PM CDT): Patient was advised to lose weight. Discussed 1/2 to 1 lb per week as a good goal. Discussed that reducing weight by 500 calories per day should result in weight loss of about a lb per week. Encouraged efforts to maintain adequate protein of more than 60 g per day. Encouraged reducing refined starches and diet especially bread, rice, pasta, and cereal. Avoid juices and sugared drinks. Discussed that 5-10% weight loss can lead to improvement in health outcomes for weight related conditions. Discussed behavioral measures. Recommended regular weight monitoring as well as some moderate with a food diary.BMI Follow-up includes: nutrition counseling and exercise counseling. Other chronic pain 01/07/2018 Primary osteoarthritis involving multiple joints 01/06/2018 CKD (chronic kidney disease) stage 2, GFR 60-89 ml/min 12/27/2015 Assessment & Plan (08/22/2024 12:21 PM CDT): Renally dose medications Assessment & Plan (02/12/2024 8:27 AM TUFTER): Renally dose medications Assessment & Plan (03/10/2023 9:34 AM TUFTER): Renally dose medications Assessment & Plan (09/05/2022 9:38 AM CDT): Continue to monitor Assessment & Plan (03/11/2022 1:46 PM TUFTER): Monitor kidney function Assessment & Plan (12/22/2018 2:57 PM TUFTER): Avoid NSAIDs or PPIs as much as possible. Renal function stable Assessment & Plan (07/07/2018 12:14 PM CDT): Avoid NSAIDs or PPIs as much as possible Nephrolithiasis 10/24/2015 Assessment & Plan (12/22/2018 2:55 PM TUFTER): Continue medication at same dosage. Well controlled. Assessment & Plan (07/07/2018 12:12 PM CDT): Continue medication at same dosage Dyslipidemia 10/24/2015 Assessment & Plan (09/05/2022 9:55 AM CDT): Chronic stable Well controlled Continue current prescribed medications at current dose Assessment & Plan (03/11/2022 1:46 PM TUFTER): Chronic stable Well controlled Continue current medications at current dose Assessment & Plan (08/21/2020 3:11 PM CDT): Continue Crestor at same dosage. Well controlled. Assessment & Plan (08/07/2020 11:00 AM CDT): Continue Crestor at same dosage. Well controlled. Assessment & Plan (08/16/2019 10:45 AM CDT): Continue medication at same dosage. Well controlled. Assessment & Plan (07/07/2018 12:13 PM CDT): Continue medication at same dosage Gout 06/23/2015 Assessment & Plan (08/21/2020 3:11 PM CDT): Continue allopurinol at same dosage. Well controlled. Assessment & Plan (08/07/2020 11:01 AM CDT): Continue allopurinol at same dosage. Well controlled. Assessment & Plan (02/21/2020 1:43 PM TUFTER): Continue medication at same dosage. Well controlled. Assessment & Plan (08/16/2019 10:46 AM CDT): Continue medication at same dosage. Well controlled. Assessment & Plan (12/22/2018 2:56 PM TUFTER): Continue medication at same dosage. Well controlled. Needs uric acid next visit Assessment & Plan (07/07/2018 12:13 PM CDT): Continue medication at same dosage Resolved Problems Problem Noted Date Diagnosed Date Resolved Date Abnormal finding on imaging 10/01/2021 03/11/2022 Assessment & Plan (01/14/2022 8:54 AM TUFTER): CT scan 07/2021 showed serosal nodule in the distal esophagus. EGD showed no evidence of nodule in the distal esophagus. EUS by Dr. Evans December 2021 with no mass in the distal esophagus but rather several benign-appearing lymph nodes in the lower paraesophageal mediastinum in the region of soft tissue on the CT scan. -consider repeat imaging in 1 year to assess stability of paraesophageal lymph nodes Assessment & Plan (10/01/2021 9:25 AM CDT): Patient underwent CTA of the heart in July of 2021 showing slight enlargement of serosal nodule in the distal esophagus, also mixed plaque at the proximal aspect of the mid LAD causing severe stenosis. -recommend EGD for further evaluation, and if unremarkable would recommend EUS -will plan to schedule EGD after cardiac clearance -The risks (risks of bleeding, infection, perforation requiring surgery, missed polyps/cancer, dental injury, aspiration pneumonia, anesthesia complications such as drug reaction and cardiopulmonary complications including rare chance of ), benefits, and alternatives of the planned procedure were explained to the patient who understands and consents to having procedure done. Patient understands he is at increased risk of cardiac complications/ during EGD or colonoscopy due to his abnormal CTA showing plaque and severe stenosis of his LAD. Abnormal cardiac CT angiography 09/16/2021 03/11/2022 Overview (09/16/2021): Added automatically from request for surgery [id number] Assessment & Plan (10/24/2021 9:42 AM CDT): CT scan showing serosal nodule in the distal esophagus. EGD showed no evidence of nodule in the distal esophagus. -refered for EUS for further evaluation, [facility] has called patient, plan to schedule after cardiac work up complete (scheduled for cardiac catheterization on October 29, 2021) Dyspnea on exertion 09/16/2021 09/06/19 Overview (09/16/2021): Added automatically from request for surgery [id number] Pre-diabetes 08/31/2021 03/10/2023 Assessment & Plan (08/31/2021 10:59 AM CDT): Stable very mild increase in glucose. Patient was encouraged to decrease the sugar and starch in diet. This means avoiding juices and sugar sweetened drinks. Patient should limit REFINED carbohydrates such as bread, rice, cereal pasta, and mashed potatoes. Regular exercise for more than 30 minutes t most days was encouraged to further improve blood sugar. The main fruit to avoid are grapes , pineapple, and bananas. Encouraged to maintain vegetables. Morbid (severe) obesity due to excess calories 07/11/2021 03/11/2022 Toe pain, bilateral 08/23/2020 03/11/19 23 Assessment & Plan (08/23/2020 9:20 AM CDT): Since the pain is only in the MCP joint of the big toe this may be just osteoarthritis and we will try meloxicam but caution side effects Paresthesia 08/08/2020 03/11/2022 Assessment & Plan (08/08/2020 11:40 AM CDT): He describes this more of a tightness senna numbness or tingling or burning but this could be neuropathy and we should at least check thyroid and B12 Chronic fatigue 08/08/2020 06/09/2023 Assessment & Plan (08/08/2020 11:40 AM CDT): Other labs have been done very recently. We should consider checking TSH and methylmalonic acid level. Bilateral lower extremity edema 08/07/2020 08/22/2024 Assessment & Plan (08/23/2020 9:20 AM CDT): Likely due to venous disease. Discussed general measures including compression stockings Assessment & Plan (08/08/2020 11:40 AM CDT): This is most likely due to venous stasis in suggest compression stockings but we should check some additional labs and have not been checked recently including B12 and CBC Rib pain on left side 08/16/20192020 Assessment & Plan (08/17/2019 8:20 AM CDT): Relative rest and heat 20 minutes p.r.n. Tylenol as needed for pain. If not better few weeks contact us for x-rays of ribs Hypertensive kidney disease with stage 2 chronic kidney disease 08/16/2019 08/07/2020 Assessment & Plan (08/16/2019 10:45 AM CDT): Continue medication at same dosage. Well controlled. Chronic kidney disease, stage 2 (mild) 08/16/2019 08/07/2020 Assessment & Plan (08/16/2019 10:45 AM CDT): Avoid NSAIDs or PPIs as much as possible. Renal function stable Nose cellulitis 03/01/2019 08/07/2020 Assessment & Plan (03/02/2019 2:35 PM TUFTER): Resolved but I did recommend he finish the oral antibiotic and then do additional few days of topical antibiotic after that. He still needs to see the contract administrator Lesion of nose 02/23/2019 03/11/2022 Assessment & Plan (03/02/2019 2:35 PM TUFTER): Still needs to see contract administrator to rule out basal cell skin cancer. Assessment & Plan (02/23/2019 3:30 PM TUFTER): Concern for possible basal cell skin cancer. Some evidence of secondary infection. Referred to Dermatology. Treat with Bactroban and Keflex. Re-evaluate 1 week. Right leg pain 12/29/2018 03/11/2022 Overview (08/17/2019): This is most likely muscular and will refer for physical therapy but consider x- rays if not better. Acute pain of left shoulder 12/29/2018 03/11/2022 Assessment & Plan (12/29/2018 10:40 AM TUFTER): Suggest relative rest as this is most likely muscular and OTC medications Low back pain 01/07/2018 03/11/2022 Assessment & Plan (02/23/2020 8:22 AM TUFTER): This is more tightness than it is pain. Recommend consider muscle relaxant but declined. Not great response with muscle relaxants previously. Recommend relative rest and trial of heat. Assessment & Plan (12/29/2018 10:39 AM TUFTER): About the same Assessment & Plan (07/07/2018 12:17 PM CDT): Pain is intermittent and does not require medication on a regular basis GERD (gastroesophageal reflux disease) 12/30/2017 07/07/2018 Elevated glucose 06/28/2015 03/10/2023 Assessment & Plan (09/05/2022 9:36 AM CDT): Recheck in 6 months Assessment & Plan (03/03/2021 10:30 AM TUFTER): Worsening of chronically elevated glucose. Recommend metformin. Metformin declined Assessment & Plan (08/21/2020 3:11 PM CDT): Improved. Patient was encouraged to decrease the sugar and starch in diet. This means avoiding juices and sugar sweetened drinks. Patient should limit REFINED carbohydrates such as bread, rice, cereal pasta, and mashed potatoes. Regular exercise for more than 30 minutes t most days was encouraged to further improve blood sugar. The main fruit to avoid are grapes , pineapple, and bananas. Encouraged to maintain vegetables. Assessment & Plan (02/21/2020 1:48 PM TUFTER): Worsening glucose. Recommend metformin. A1c today . Medication declined Assessment & Plan (08/16/2019 10:47 AM CDT): Needs repeat labs . Last glucose improved. Patient was encouraged to decrease the sugar and starch in diet. This means avoiding juices and sugar sweetened drinks. Patient should limit REFINED carbohydrates such as bread, rice, cereal pasta, and mashed potatoes. Regular exercise for more than 30 minutes t most days was encouraged to further improve blood sugar. The main fruit to avoid are grapes , pineapple, and bananas. Encouraged to maintain vegetables. Assessment & Plan (12/22/2018 2:56 PM TUFTER): Patient was encouraged to decrease the sugar and starch in diet. This means avoiding juices and sugar sweetened drinks. Patient should limit REFINED carbohydrates such as bread, rice, cereal pasta, and mashed potatoes. Regular exercise for more than 30 minutes t most days was encouraged to further improve blood sugar. The main fruit to avoid are grapes , pineapple, and bananas. Encouraged to maintain vegetables. Needs repeat labs Assessment & Plan (07/07/2018 12:13 PM CDT): Patient was encouraged to decrease the sugar and starch in diet. This means avoiding juices and sugar sweetened drinks. Patient should limit REFINED carbohydrates such as bread, rice, cereal pasta, and mashed potatoes. Regular exercise for more than 30 minutes t most days was encouraged to further improve blood sugar. The main fruit to avoid are grapes , pineapple, and bananas. Encouraged to maintain vegetables. Hyperlipidemia 06/23/2015 03/11/2022 Assessment & Plan (08/31/2021 10:59 AM CDT): Continue Crestor at same dosage. Well controlled. Assessment & Plan (03/03/2021 10:31 AM TUFTER): Worsening of lipidemia. Recommend increase Crestor to 40 mg. Increased dosage declined. Discussed that elevated triglycerides at best treated by diet. Encourage ever to keep weight down and decrease fat and starches and diet other than vegetables. Less bread, rice, cereal, and other refined carbohydrates. Assessment & Plan (02/21/2020 1:43 PM TUFTER): Continue medication at same dosage. Well controlled. Assessment & Plan (12/22/2018 2:55 PM TUFTER): Continue medication at same dosage. Well controlled. Needs labs next visit Assessment & Plan (07/07/2018 12:12 PM CDT): Continue medication at same dosage. Good control Encounters Date Type Department Care Team Description 09/16/2024 9:53 AM CDT - 09/16/2024 11:59 PM CDT Hospital Encounter [id number] [place] [address] Calculus of kidney Discharge Disposition: Discharge to home or self care 09/05/2024 9:30 AM CDT Office Visit [facility] [facility] [address] [place] [id number] Vinita Garcia NP Hypertension, essential (Primary Dx); Coronary artery disease involving false pass coronary artery of false pass heart without angina pectoris; Dyslipidemia; Palpitations 08/31/2024 Results Follow-Up [facility] [address] [facility] [address] [place] [address] Gail Blount NP CBC with auto differential, Comprehensive metabolic panel, Lipid panel, Additional followed-up results: 2 08/22/2024 9:15 AM CDT Office Visit [facility] [address] [place] [phone] [place] [address] Rm Dubois Jr., MD Controlled type 2 diabetes mellitus with stage 2 chronic kidney disease, without long-term current use of insulin (HCC) (Primary Dx); CKD (chronic kidney disease) stage 2, GFR 60-89 ml/min; Class 1 obesity due to excess calories with serious comorbidity and body mass index (BMI) of 34.0 to 34.9 in adult; Hypertension, essential 08/16/2024 Results Follow-Up [facility] [address] [facility] [address] [place] [address] Soni Monique NP PSA screen 08/15/2024 Orders Only [facility] [address] [place] [phone] Rm Dubois Jr., MD from Last 3 Months Immunizations Immunization Administration Dates Next Due Influenza, Quadrivalent, Hig h Dose, Preservative Free, Intrr 12/26/2021 Influenza, Trivalent, High D ose, Split, Preservative Free, Intramuscular 12/18/2023 Influenza, Unspecified 03/10/2023(Deferr ed: Patient Refused),12/10/2022(Deferred: Patient Refused) Moderna SARS-CoV-2 Monovalen t Vaccination (12+ YRS) 12/06/2020,04/20/2020,03/23/2020 Pneumococcal Conjugate PCV 13 07/08/2018 Pneumococcal Polysaccharide PPV23 06/26/2016 Tdap 07/08/2022 Surgical History Surgery Date Site/Laterality Comments TONSILLECTOMY KIDNEY STONE SURGERY FRACTURE SURGERY temporal EAR SURGERY ROTATOR CUFF REPAIR Left CYST REMOVAL 02/09/2019 - 02/09/2020 Left left nostril COLONOSCOPY Pt reports he had a colonoscopy in 2018. LITHOTRIPSY UPPER GASTROINTESTINAL ENDOSCOPY BRAIN SURGERY November 1997 CATARACT EXTRACTION cataract no implant 2011 Medical History Medical History Date Comments Dyslipidemia Gouty arthritis Nephrolithiasis GERD (gastroesophageal reflux disease) Gout Hyperlipidemia Elevated glucose CKD (chronic kidney disease), stage III (HCC) Hypertensive kidney disease Other obesity BMI 33.0-33.9,adult Primary generalized hypertrophic osteoarthrosis Low back pain Other chronic pain Primary osteoarthritis involving multiple joints PONV (postoperative nausea and vomiting) Colon polyp Hypertension Cataract Peptic ulceration October 2021 Coronary artery disease Family History Medical History Relation Name Comments Coronary artery disease Father John Gorsakaterine Heart attack Father John Archuleta Heart disease Father John Archuleta Hypertension Father John Archuleta Arthritis Mother Esther Archuleta Heart attack Mother Esther Archuleta Hypertension Mother Esther Archuleta Miscarriages / Stillbirths Mother Esther Archuleta Relation Name Status Comments Father John Archuleta Mother Esther Archuleta Social History Tobacco Use Types Packs/Day Years Used Date Smoking Tobacco: Never Smokeless Tobacco: Never Tobacco Cessation:Counseling Given: Not Answered Alcohol Use Standard Drinks/Week Comments Yes 0 [...] on file Legal Sex 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 Gender Identity Not on file Sexual Orientation Not on file Obstetrics History Last Filed Vital Signs Vital Sign Reading Time Taken Comments Blood Pressure 130/70 09/05/2024 9:18 AM CDT Pulse 55 09/05/2024 9:18 AM CDT Temperature 36.7 C (98.1 F) 08/22/2024 9:07 AM CDT Respiratory Rate 18 08/22/2024 9:07 AM CDT Oxygen Saturation 94% 09/05/2024 9:18 AM CDT Inhaled Oxygen Concentration - - Weight 97 kg (213 lb 12.8 oz) 09/05/2024 9:18 AM CDT Height 165.1 cm (5' 5) 09/05/2024 9:18 AM CDT Body Mass Index 35.58 09/05/2024 9:18 AM CDT Plan of Treatment Health Maintenance Due Date Last Done Comments Hepatitis C Screening 1950 Foot Exam 1950 Hepatitis B Screening 1966 Covid-19 Vaccine ( season) 2024 12/06/2020, 04/20/2020, 03/23/2020 Influenza Vaccine (#1) 2024 12/18/2023, 2021 Albumin Creatinine Ratio, Urine 12/16/2024 12/17/2023, 06/01/2023 Fall Risk Assessment 02/11/2025 02/12/2024, 12/18/2023, 09/05/2022, Additional history exists Well Visit 65+ 02/11/2025 02/12/2024, 08/10, 03/05/2021, Additional history exists Hemoglobin A1C 02/22/2025 08/22/2024, 08/2023, 06/01/2023, Additional history exists Dilated Eye Exam 06/08/2025 06/09/2023 Depression Screening 08/22/2025 08/22/2024, 02/12/2024, 12/18/2023, Additional history exists Zoster Vaccine (1 of 2) 08/22/2025 Post poned from 1998 (Insurance / Financial) Lipid Panel 08/29/2025 08/29/2024, 12/0 05/2023, 12/17/2023, Additional history exists eGFR 08/29/2025 08/29/2024, 12/0 05/2023, 12/17/2023, Additional history exists Pneumococcal vaccine 65+ Completed 07/08/2018, 06/09 Colon Cancer Screening-CT Colonography Discontinued 10/16/2021, 05/04/2018 Colon Cancer Screening-Colonoscopy Discontinued 10/16/2021, 10/16/2021, 05/04/2018 Colon Cancer Screening-DNA Stool Discontinued 10/16/2021, 05/04/2018 Colon Cancer Screening-FIT Discontinued 10/16/2021, Colon Cancer Screening-FOBT Discontinued 10/16/2021, 05/04/2018 Colon Cancer Screening-Sigmoidoscopy Discontinued 10/16/2021, 05/04/2018 Colorectal Cancer Screening Discontinued DTaP/Tdap/Td Vaccine Discontinued 07/08/2022 Procedures Procedure Name Priority Date/Time Associated Diagnosis Comments XR KUB Schedule Routine, Read Routine (OP Routine) 09/16/2024 10:04 AM CDT Calculus of kidney ECG 12-LEAD Routine 09/05/2024 9:30 AM CDT Hypertension, essential Coronary artery disease involving false pass coronary artery of false pass heart without angina pectoris THYROID FUNCTION CASCADE Routine 08/29/2024 8:03 AM CDT Atherosclerosis of false pass coronary artery of false pass heart without angina pectoris MAGNESIUM Routine 08/29/2024 8:03 AM CDT Atherosclerosis of false pass coronary artery of false pass heart without angina pectoris LIPID PANEL Routine 08/29/2024 8:03 AM CDT Atherosclerosis of false pass coronary artery of false pass heart without angina pectoris COMPREHENSIVE METABOLIC PANEL Routine 08/29/2024 8:03 AM CDT Atherosclerosis of false pass coronary artery of false pass heart without angina pectoris CBC WITH AUTO DIFFERENTIAL Routine 08/29/2024 8:03 AM CDT Atherosclerosis of false pass coronary artery of false pass heart without angina pectoris POCT HEMOGLOBIN A1C Routine 08/22/2024 9 :16 AM CDT Controlled type 2 diabetes mellitus with stage 2 chronic kidney disease, without long-term current use of insulin (HCC) PSA SCREEN Routine 08/15/2024 9:40 AM CDT ALBUMIN CREATININE RATIO, URINE Routine 12/17/2023 8:10 AM TUFTER Controlled type 2 diabetes mellitus with stage 2 chronic kidney disease, without long-term current use of insulin (HCC) Preventative health care DIABETES EYE EXAM Routine 06/09/2023 COLONOSCOPY Routine 10/16/2021 from Last 3 Months or Most Recently Relevant to Health Maintenance Results * XR KUB (09/16/2024 10:04 AM CDT) Anatomical Region Laterality Modality Body, Abdomen N/A Computed Radiogr aphy 10/07/2024 11:3 4 AM CDT Narrative 10/07/2024 11:37 AM CDT EXAM DESCRIPTION: XR KUB REASON FOR STUDY: Calculus of kidney Pt complains of left flank pain for 2-3 days. History of kidneys tones. TECHNIQUE: 3 radiographic view(s) of the abdomen . COMPARISON: None FINDINGS: 2.1 cm elongated calcification in the right renal fossa suspicious for renal calculus. Nonobstructive bowel gas pattern. IMPRESSION: 2.1 cm calcification in the right renal fossa suspicious for right renal calculus. THIS IS AN ELECTRONICALLY VERIFIED FINAL REPORT 10/07/2024 11:37 AM - Electronically signed by Margarita Pagan M.D. FT T: Report ID: [id number] Reading Location: [id number] Procedure Note Margarita Syed MD - 10/07/2024 EXAM DESCRIPTION: XR KUB REASON FOR STUDY: Calculus of kidney Pt complains of left flank pain for 2-3 days. History of kidneys tones. TECHNIQUE: 3 radiographic view(s) of the abdomen . COMPARISON: None FINDINGS: 2.1 cm elongated calcification in the right renal fossasuspicious for renal calculus. Nonobstructive bowel gas pattern. IMPRESSION: 2.1 cm calcification in the right renal fossa suspicious forright renal calculus. THIS IS AN ELECTRONICALLY VERIFIED FINAL REPORT 10/07/2024 11:37 AM - Electronically signed by Margarita Pagan M.D. FT T: Report ID: [id number] Reading Location: [place] [address] us Timmy Gonzalez MD IMG XR PROCEDURES Final Result * ECG 12 lead (09/05/2024 9:30 AM CDT) us Vinita Garcia SENIOR REGULATORY AFFAIRS SPECIALIST ECG ORDERABLES Final Resul t * Thyroid Function Convent (08/29/2024 8:03 AM CDT) Pathologist [facility] TSH 2.12 0.40 - 4.50 mIU/L [facility] Blood 08/29/2024 8:03 AM CDT 08/29/2024 8:04 AM CDT Narrative [facility] - 08/30/2024 4:21 AM CDT FASTING:YES FASTING: YES us Gail Blount NP LAB BLOOD ORDERABLES Final Resul t [facility] [address] [place] [address] * CBC with auto differential (08/29/2024 8:03 AM CDT) Pathologist [facility] WBC 7.0 3.8 - 10.8 Thousand/u L [facility] RBC, POC 4.76 4.20 - 5.80 Million/uL [facility] Hgb 15.0 13.2 - 17.1 g/dL [facility] Hct 46.3 38.5 - 50.0 % [facility] MCV 97.3 80.0 - 100.0 fL [facility] MCH 31.5 27.0 - 33.0 pg [facility] MCHC 32.4 32.0 - 36.0 g/dL [facility] Comment: For adults, a slight decrease in the calculated MCHC value (in the range of 30 to 32 g/dL) is most likely not clinically significant; however, it should be interpreted with caution in correlation with other red cell parameters and the patient's clinical condition. Rdw 12.6 11.0 - 15.0 % [facility] Platelets 249 140 - 400 Thousand/u L [facility] MPV 10.8 7.5 - 12.5 fL [facility] Neutrophils, abs 4,844 1,500 - 7,800 cells/uL [facility] Lymphocytes, abs 1,365 850 - 3,900 cells/uL [facility] Monocyte abs 630 200 - 950 cells/uL [facility] Eosinophils, abs 119 15 - 500 cells/uL [facility] Basophils, abs 42 0 - 200 cells/uL [facility] Neutrophils 69.2 % [facility] Lymphocyte pct 19.5 % [facility] Monocytes 9.0 % [facility] Eosinophils 1.7 % [facility] Basophils 0.6 % [facility] Blood 08/29/2024 8:03 AM CDT 08/29/2024 8:04 AM CDT Narrative [facility] - 08/30/2024 4:21 AM CDT FASTING:YES FASTING: YES Gail Blount SENIOR REGULATORY AFFAIRS SPECIALIST LAB BLOOD ORDERABLES Final Resul t Performing Organization Address City/State/[facility] Co de Phone Number [facility] [address] [place] [address] * Magnesium (08/29/2024 8:03 AM CDT) Magnesium 2.0 1.5 - 2.5 mg/dL [facility] Blood 08/29/2024 8:03 AM CDT 08/29/2024 8:04 AM CDT Narrative [facility] - 08/30/2024 4:21 AM CDT FASTING:YES FASTING: YES us Gail Blount SENIOR REGULATORY AFFAIRS SPECIALIST LAB BLOOD ORDERABLES Final Resul t Performing Organization Address City/State/[facility] Co de Phone Number PI[facility] [address] [facility] [address] * (ABNORMAL) Lipid panel (08/29/2024 8:03 AM CDT) Cholesterol 112 <200 mg/dL [facility] HDL 37(L) > OR = 40 mg/dL [facility] Triglycerides 104 <150 mg/dL [facility] LDL 56 mg/dL (calc) [facility] Comment: Reference range: <100 Desirable range <100 mg/dL for primary prevention; <70 mg/dL for patients with CHD or diabetic patients with > or = 2 CHD risk factors. LDL-C is now calculated using the Marv-Sandra calculation, which is a validated novel method providing better accuracy than the Friedewald equation in the estimation of LDL-C. Marv SS et al. JARED. 2013;310(19): 0209-7790 (http://education.[employer]/faq/YAN712) Chol/HDL ratio 3.0 <5.0 (calc) [facility] Non-HDL, (LDL+VLDL) 75 <130 mg/dL (calc) [facility] Comment: For patients with diabetes plus 1 major ASCVD risk factor, treating to a non-HDL-C goal of <100 mg/dL (LDL-C of <70 mg/dL) is considered a therapeutic option. Blood 08/29/2024 8:03 AM CDT 08/29/2024 8:04 AM CDT Narrative [facility] - 08/30/2024 4:21 AM CDT FASTING:YES FASTING: YES Gail Blount NP LAB BLOOD ORDERABLES Final Resul t Performing Organization Address [facility] Co de Phone Number PI[facility] [employer] [address] [place] [address] * Comprehensive metabolic panel (08/29/2024 8:03 AM CDT) Glucose 98 65 - 99 mg/dL [facility] Comment: Fasting reference interval BUN 19 7 - 25 mg/dL [facility] Creatinine 1.01 0.70 - 1.28 mg/dL [facility] eGFR 77 > OR = 60 mL/min/1.7 3m2 [facility] BUN/creat ratio SEE NOTE: 6 - 22 (calc) [facility] Comment: Not Reported: BUN and Creatinine are within reference range. Sodium 140 135 - 146 mmol/L [facility] Potassium, pl 4.3 3.5 - 5.3 mmol/L [facility] Chloride 103 98 - 110 mmol/L [facility] CO2 29 20 - 32 mmol/L [facility] Calcium 8.9 8.6 - 10.3 mg/dL [facility] Protein, sr 6.2 6.1 - 8.1 g/dL [facility] Albumin 4.0 3.6 - 5.1 g/dL [facility] GLOBULIN 2.2 1.9 - 3.7 g/dL (calc) [facility] Alb/glob ratio 1.8 1.0 - 2.5 (calc) [facility] Bilirubin, total 0.7 0.2 - 1.2 mg/dL [facility] Alk phos 62 35 - 144 U/L [facility] AST 18 10 - 35 U/L [facility] ALT (SGPT) 16 9 - 46 U/L [facility] Blood 08/29/2024 8:03 AM CDT 08/29/2024 8:04 AM CDT Narrative [facility] - 08/30/2024 4:21 AM CDT FASTING:YES FASTING: YES us Gail Blount NP LAB BLOOD ORDERABLES Final Resul t [facility] [address] [place] [address] * (ABNORMAL) POCT hemoglobin A1c (08/22/2024 9:16 AM CDT) Hemoglobin A1C, POC 6.1(A) 4.0 - 5.6 % Capillary blood 08/22/2024 9 :16 AM CDT Rm Dubois Jr., MD POINT OF CARE TEST OR DERABLES Final Result * PSA screen (08/15/2024 9:40 AM CDT) PSA 3.26 < OR = 4.00 ng/mL [facility] Comment: The total PSA value from this assay system is standardized against the WHO standard. The test result will be approximately 20% lower when compared to the equimolar-standardized total PSA (Hardik Anjelica). Comparison of serial PSA results should be interpreted with this fact in mind. This test was performed using the Siemens chemiluminescent method. Values obtained from different assay methods cannot be used interchangeably. PSA levels, regardless of value, should not be interpreted as absolute evidence of the presence or absence of disease. 08/15/2024 9:40 AM CDT 08/15/2024 9:40 AM CDT Rm Dubois Jr., MD LAB BLOOD ORDERABLES Final Result [facility] [address] [place] [address] * Albumin Creatinine Ratio, Urine (12/17/2023 8:10 AM TUFTER) Creatinine, ur 102 20 - 320 mg/dL [facility] Microalbumin, ur 0.6 See Note: mg/dL [facility] Comment: Reference Range: Reference Range Not established Microalbumin/creat ratio 6 <30 mg/g creat [facility] Comment: The ADA defines abnormalities in albumin excretion as follows: Albuminuria Category Result (mg/g creatinine) Normal to Mildly increased <30 Moderately increased 30-299 Severely increased > OR = 300 The ADA recommends that at least two of three specimens collected within a 3-6 month period be abnormal before considering a patient to be within a diagnostic category. Urine 12/17/2023 8:10 AM TUFTER 12/17/2023 8:11 AM TUFTER Narrative [facility] - 12/18/2023 4:26 AM TUFTER FASTING:YES FASTING: YES Rm Dubois Jr., MD LAB URINE ORDERABLES Final Result [facility] [address] [place] [address] * DIABETES EYE EXAM (06/09/2023) SCRIBED DIABETIC DILATED EYE EXAM Normal Historical Provider HEALTH MAINTENANCE Final Result * COLONOSCOPY (10/16/2021) Scribed Colonoscopy Normal Comment:op note in chart Historical Provider HEALTH MAINTENANCE Final Result from Last 3 Months or Most Recently Relevant to Health Maintenance Insurance MEDICARE RAILROAD [facility] Address: [id number] [place] [address] MED[address]ARE [address] MEDICARE RAILROAD [address] Member Subscriber Plan / Payer ( fective 2015-Present) Name:Ildefonso Archuleta R Relation to Subscriber:Self Name:Ildefonso Archuleta Payer ID:[id number] (NAIC) Group ID:[id number] Type:BC SOTERO Address: [facility] [address] [place] [address] Advance Directives For more information, please contact: [phone] * Full Code (Latest Code Status on File) Date Activated Date Inactivated Comments 12/16/2021 11:23 AM 12/16/2021 7:55 PM Care Teams Probation And Parole Officer Relationship Specialty Start Date End Date Rm Dubois Jr., MD [address] [place] [address] [phone] PCP - General Internal Medicine 03/11/22 Prasanna Hidalgo MD Consulting Physician Interventional Cardiology 12/29/18 Timmy Gonzalez MD [address] [place], [place] [phone] Consulting Physician Urology 12/29/18 Mohini Morgan MD [address] [place] [address] Dermatology 03/10/23
--- OUTSIDE RECORDS SUMMARY | 2024-10-16 12:11 | XMS_ITS | Encounter Summary ---
Author Organization [facility] Facility Care Team Providers Care Screw Machine Set Up Operator Name Role Phone Cleve eWller MD Primary Care Provider [phone] Prasanna Hidalgo MD Unavailable [phone] Timmy Gonzalez MD Unavailable [phone] Silvino Hayden MD, Rm Michelle Primary Care Provide r Mohini Morgan MD Unavailable [phone] Encounter Details Date Type Department Care Team (Latest Contact Info) Description 05/09/2015 Orders Only [facility] CLINCON[facility] ProviderMain MD [address] [place], [place] [id number] Social History Tobacco Use Types Packs/Day Years Used Date Smoking Tobacco: Never Assessed Sex and Gender Information Value Date Recorded Sex Assigned at Not on file 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 us Historical Provider [facility] CARDIAC SERVICES PROCE DURES Final Result * CARDIOLOGY REPORT (10/18/2015 12:00 AM CDT) Anatomical Region Laterality Modality Other Narrative 10/18/2015 12:00 AM CDT Ordered by an unspecified provider. Historical Provider CV CARDIAC SERVICES PROCE DURES Final Result documented in this encounter Visit Diagnoses Not on filedocumented in this encounter Care Teams Screw Machine Set Up Operator Relationship Specialty Start Date End Date Cleve Weller MD PCP - General Family Practice 05/20/18 03/10/22 Rm Dubois Jr., MD [address] [place] [address] [id number] PCP - General Internal Medicine 03/11/22 Prasanna Hidalgo MD Consulting Physician Interventional Cardiology 12/29/18 Timym Gonzalez MD [address] [address] Consulting Physician Urology 12/29/18 Mohini Morgan MD [address] [place] [address] [phone] Dermatology 03/10/23 documented as of this encounter
--- OUTSIDE RECORDS SUMMARY | 2024-10-16 12:11 | XMS_ITS | Encounter Summary ---
Author Organization [facility] Facility Care Team Providers Care Hvac Sheet Metal Installer Helper Name Role Phone Cleve Weller MD Primary Care Provider [phone] Prasanna Hidalgo MD Unavailable Timmy Gonzalez MD Unavailable [phone] Silvino Hayden MD, Rm Michelle Primary Care Provide r Mohini Morgan MD Unavailable [phone] Encounter Details Date Type Department Care Team (Latest Contact Info) Description 12/21/2014 Orders Only [facility] CLINCONV ProviderMain MD [address] [place], [place] [phone] Social History Tobacco Use Types Packs/Day Years Used Date Smoking Tobacco: Never Assessed Sex and Gender Information Value Date Recorded Sex Assigned at Not on file 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 Historical Provider Final Res ult documented in this encounter Visit Diagnoses Not on filedocumented in this encounter Care Teams Hvac Sheet Metal Installer Helper Relationship Specialty Start Date End Date Cleve Weller MD PCP - General Family Practice 05/20/18 03/10/22 Rm Dubois Jr., MD [address] [place] [address] [phone] PCP - General Internal Medicine 03/11/22 Prasanna Hidalgo MD Consulting Physician Interventional Cardiology 12/29/18 Timmy Gonzalez MD [address] [facility] [address] [place] [address] [phone] Consulting Physician Urology 12/29/18 Mohini Morgan MD [address] [place] [address] [phone] Dermatology 03/10/23 documented as of this encounter
--- OUTSIDE RECORDS SUMMARY | 2024-10-16 12:11 | XMS_ITS | Encounter Summary ---
Author Organization [facility] Healthcare Address [address] [place] [address] Care Team Providers Care Financial Internship Name Role Phone Prasanna Hidalgo MD Unavailable [phone] Timmy Gonzalez MD Unavailable [phone] Silvino Hayden MD, mR Michelle Primary Care Provide r Mohini Morgan MD Unavailable [phone] Encounter Details Date Type Department Care Team (Late st Contact Info) Description 08/16/2024 Results Follow-Up [facility] Medical [facility] Primary Care [address] [place] [phone] Soni Monique NP [address] [place] [phone] PSA screen Social History Tobacco Use Types Packs/Day Years Used Date Smoking Tobacco: Never Cigarettes Smokeless Tobacco: Never Alcohol Use Standard Drinks/Week Comments Yes 0 (1 standard drink = 0.6 oz pur e alcohol) 1 per month AUDIT-C Answer Date Recorded Q1: How often do you have a drink containing alc ohol? Monthly or less 06/09/2023 Q2: How many drinks containi ng alcohol do you have on a typical day when you are drinking? 1 or 2 06/09/2023 Q3: How often do you have si x or more drinks on one occasion? 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 Gender Identity Not on file Sexual Orientation Not on file documented as of this encounter Plan of Treatment Not on file documented as of this encounter Visit Diagnoses Not on filedocumented in this encounter Care Teams Financial Internship Relationship Specialty Start Date End Date Rm Dubois Jr., MD [address] [place] [id number] PCP - General Internal Medicine 03/11/22 Prasanna Hidalgo MD Consulting Physician Interventional Cardiology 12/29/18 Timmy Gonzalez MD [address] [address] Consulting Physician Urology 12/29/18 Mohini Morgan MD [address] [place] [address] Dermatology 03/10/23 documented as of this encounter
--- OUTSIDE RECORDS SUMMARY | 2024-10-16 12:13 | XMS_ITS | Encounter Summary ---
Author Organization [facility] Facility Care Team Providers Care Telegraph And Teletype Operator Name Role Phone Cleve Weller MD Primary Care Provider [phone] Prasanna Hidalgo MD Unavailable Timmy Gonzalez MD Unavailable [phone] Silvino Hayden MD, Rm Michelle Primary Care Provide r Mohini Morgan MD Unavailable [phone] Encounter Details Date Type Department Care Team (Latest Contact Info) Description 05/06/2018 Orders Only [facility] ProviderMain MD [address] [place], [place] [id number] Social History Tobacco Use Types Packs/Day Years Used Date Smoking Tobacco: Never Assessed Sex and Gender Information Value Date Recorded Sex Assigned at Not on file 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 Historical Provider Final Res ult documented in this encounter Visit Diagnoses Not on filedocumented in this encounter Care Teams Telegraph And Teletype Operator Relationship Specialty Start Date End Date Cleve Weller MD PCP - General Family Practice 05/20/18 03/10/22 Rm Dubois Jr., MD [address] [place] [address] [id number] PCP - General Internal Medicine 03/11/22 Prasanna Hidalgo MD Consulting Physician Interventional Cardiology 12/29/18 Timmy Gonzalez MD [id number] [id number] Consulting Physician Urology 12/29/18 Mohini Morgan MD [address] [place] [address] [id number] Dermatology 03/10/23 documented as of this encounter
[2024-10-16 12:16] VITALS: BP 152/63; PULSE 56; RESP 18; TEMP 36.1; O2SAT 98
--- NOTE | 2024-10-16 12:22 | ED.LOWEXIN ---
HPI - Extremity Injury (Lower) General Chief Complaint: Extremity Injury, Lower Stated Complaint: RT Ankle Pain Time Seen by Provider: 10/16/24 12:22 Source: patient Mode of arrival: ambulatory Limitations: no limitations History of Present Illness HPI Narrative: 74 yo M presents with pain and swelling to medial aspect R ankle. Denies injury but has been doing yard work and climbing ladder last few days. Pain worse when first standing up, feels better after walking it out. All systems reviewed and negative except as noted above. Related Data Home Medications ?Medication ?Instructions ?Recorded ?Confirmed ?Last Taken ?Type amlodipine 5 mg tablet (Norvasc) 5 mg PO DAILY 04/07/20 12/07/23 12/06/23 History bisoprolol fumarate 5 mg tablet 10 mg PO DAILY 04/07/20 12/07/23 12/06/23 History losartan 100 mg tablet 100 mg PO DAILY 04/07/20 12/07/23 12/07/23 History potassium citrate 10 mEq (1,080 20 meq PO BID 04/07/20 12/07/23 12/06/23 History mg) tablet,extended release (Urocit-K 10) cholecalciferol (vitamin D3) 50 50 mcg PO DAILY 04/09/20 12/07/23 12/06/23 History mcg (2,000 unit) capsule rosuvastatin 20 mg tablet 20 mg PO DAILY 07/08/22 12/07/23 12/06/23 History aspirin 81 mg tablet,delayed 81 mg PO DAILY 11/05/23 12/07/23 12/06/23 History release (Adult Low Dose Aspirin) losartan 100 mg tablet 50 mg PO HS 11/05/23 12/07/23 12/06/23 History Ybr-B-Evzznzy-10 1 tablet PO DAILY 12/07/23 12/07/23 Unknown History bisoprolol fumarate 10 mg tablet mg 10/16/24 Unknown History Allergies Allergy/AdvReac Type Severity Reaction Status Date / Time No Known Allergies Allergy Verified 10/16/24 12:14 [facility] Past Medical History Medical History (Updated 10/16/24 @ 12:53 by Margarette Caballero NP) Distal radial fracture Arthritis High cholesterol Wears glasses History of adverse effect of anesthesia Kidney stones Hypertension Surgical History Surgical History History of repair of rotator cuff approx. [id number] History of ear surgery approx. 1999 History of extraction of renal calculus History of tonsillectomy H/O lithotripsy Family History Family History Other Arthritis Heart disease High cholesterol Hypertension Social History Social History Smoking status: Never smoker Alcohol intake: current Drinks per week: 1 Alcohol use details: 6 times per year Substance use: never Substance use type: does not use Do You Feel Safe in your Home?: Yes Lack of Transportation: No Lack of Food: Never True Current Housing: I Have Housing Concerned About Future Housing: No Difficulty Paying Gas/Electric Bills: No Difficulty Paying for Meds: No Currently Unemployed: No Education: Don't Know Difficulty w/ Childcare or Family Care: No Gender identity (if verbalized by the patient): Male Spiritual care concerns: No Comments At time of signature, agree with nursing past medical, surgical, social and family history. There is no relevant family history pertinent to the presenting complaint. Exam Narrative: GENERAL: This is a well-nourished, well-developed patient, in no apparent distress. HEAD: normocephalic, atraumatic. EYES: PERRL. Sclera clear/white. Vision is grossly intact. EARS: External ears normal NOSE: External nose normal NECK: Neck supple, non-tender without lymphadenopathy, masses or thyromegaly. CARDIOVASCULAR: Regular rate and rhythm without murmurs, gallops, or rubs. RESPIRATORY: Clear to auscultation. Breath sounds equal bilaterally. No wheezes, rales, or rhonchi. SKIN: warm, Dry, intact with no suspicious lesions or rash, good texture and turgor. NEURO: awake, alert, and oriented to person, place and time. There were no obvious focal neurologic abnormalities. EXTREMITIES: tenderness just below R medial malleolus with swelling. no deformity. no erythema or warmth concerning for infection or gout. Course Course Level of Care: Express Care Visit Vital Signs Vital signs: Vital Signs Temperature 36.1 C L 10/16/24 12:16 Pulse Rate 56 L 10/16/24 12:16 Respiratory Rate 18 10/16/24 12:16 Blood Pressure 152/63 H 10/16/24 12:16 Pulse Oximetry 98 10/16/24 12:16 Oxygen Delivery Room Air 10/16/24 12:16 Temperature 36.1 C L 10/16/24 12:16 Pulse Rate 56 L 10/16/24 12:16 Respiratory Rate 18 10/16/24 12:16 Blood Pressure 152/63 H 10/16/24 12:16 Pulse Oximetry 98 10/16/24 12:16 Oxygen Delivery Room Air 10/16/24 12:16 reviewed. MDM - Extremity Injury (Lower) MDM Narrative Medical decision making narrative: discussed x-ray results with pt. no acute fracture. has ankle brace at home that he is going to wear and see if it helps pain. Recommend rest, ice. Will follow up with PCP if pain not improving in the next few wks. Differential Diagnosis Differential diagnosis: Likely ankle sprain and strain, ankle fracture and other (arthritis, tendonitis) Discharge Plan Discharge Clinical Impression: Acute right ankle pain Patient Disposition: Home Condition: Stable Instructions: Ankle Strain (ED) Additional Instructions: Take medication as prescribed. Take ibuprofen or tylenol every 6 to 8 hours as needed for pain. Elevate when at rest. Apply ice as needed for pain. See your primary care physician in pain is not improving. Patient Language: Amharic Prescriptions: New methylprednisolone [Medrol (Tayo)] 4 mg tablets,dose pack See Rx Instructions PO .COMPLEX Qty: 21 0RF Rx Instructions: orally per package directions No Action rosuvastatin 20 mg tablet 20 mg PO DAILY bisoprolol fumarate 10 mg tablet amlodipine [Norvasc] 5 mg Tablet 5 mg PO DAILY bisoprolol fumarate 5 mg Tablet 10 mg PO DAILY potassium citrate [Urocit-K 10] 10 mEq (1,080 mg) Tablet Extended Release 20 meq PO BID losartan 100 mg Tablet 100 mg PO DAILY cholecalciferol (vitamin D3) 50 mcg (2,000 unit) capsule 50 mcg PO DAILY Hbk-V-Navwthc-10 1 tablet PO DAILY aspirin [Adult Low Dose Aspirin] 81 mg Tablet,Delayed Release (Dr/Ec) 81 mg PO DAILY losartan 100 mg tablet 50 mg PO HS Follow-up/Referrals: Silvino,Rm Michelle Jr., MD [Primary Care Provider, Unknown] Time of Disposition: 12:53
== END 2024-10-16 12:55 | disposition home or self-care (01) ==
PROVIDERS: Emergency Provider Nurse Practitioner Family; PCP Hospitalist
DX: M25.571 Pain in right ankle and joints of right foot (principal); E78.00 Pure hypercholesterolemia, unspecified; I10 Essential (primary) hypertension
CPT/HCPCS: 73610; 99213; G0463